=== PATIENT | male | born 1960 | race Caucasian/White ===

== ENCOUNTER 2023-04-05 08:05 | Outpatient (CLI) | payer OTHER, SELFPAY ==
--- NOTE | ~2023-04-05 | XR_ITS ---
Lumbosacral Spine: AP and lateral views Clinical History: Pain Findings: The normal lordotic curve is maintained. 17 mm anterolisthesis of L5 over S1 present. Suspe cted L5 pars interarticularis defects. There is advanced facet arthropathy at L4-L5 and L5-S1. The sa croiliac joints are normally outlined. Impression: 17 mm anterolisthesis of L5 over S1, suspected bilateral L5 pars interarticularis defects. Facet arthropathy at the lower lumbar spine. Reviewed, dictated and finalized at location M. OWNER OPERATOR TRUCK DRIVER Impression: 17 mm anterolisthesis of L5 over S1, suspected bilateral L5 pars interarticular is defects. Facet arthropathy at the lower lumbar spine.
--- NOTE | ~2023-04-05 | XR_ITS ---
AP and lateral views of the right hip Clinical history: Pain Findings: No acute fracture or dislocation is seen. Osseous alignment is anatomic. There is mild to m oderate degenerative change of the right hip joint. Soft tissues are unremarkable. Impression: Aojv-hn-xohebjxx degenerative change of the right hip joint. No fracture or dislocation. Reviewed, dictated and finalized at location . LITIES MAINTENANCE ENGINEER Impression: Ebgt-vj-[id number] degenerative change of the right hip joint. No fracture or dislocation.
[2023-04-05 19:52] LABS: Alanine Aminotransferase 29 U/L (6-50); Albumin Level 4.3 g/dL (3.5-5.1); Alkaline Phosphatase 63 U/L (38-126); Anion Gap 6 mmol/L (8-16); Aspartate Amino Transferase 64 U/L (17-59); Blood Urea Nitrogen 10 mg/dL (9-20); Calcium 9.3 mg/dL (8.4-10.2); Carbon Dioxide 29 mmol/L (22-30); Chloride 103 mmol/L (98-107); Cholesterol 204 mg/dL (0-200); Estimated Glomerular Filt Rate > 60; Glucose 100 mg/dL (65-110); HDL Direct 64 mg/dL; Potassium 4.4 mmol/L (3.4-5.0); Sodium 138 mmol/L (137-145); Triglycerides 95 mg/dL (<150)
[2023-04-05 20:03] LABS: LDL Cholesterol Direct 111 mg/dL
[2023-04-05 20:20] LABS: Prostate Specific Antigen 0.5 ng/mL (< OR = 4.0)
[2023-04-05 20:33] LABS: Vitamin D 25 Hydroxy 41.8 ng/mL
[2023-04-05 20:42] LABS: Basophils Percent Auto 0.6 % (0.2-1.2); Eosinophils Absolute Auto 0.3 K/mm3 (0-0.3); Eosinophils Percent Auto 4.7 % (0-4.4); Hematocrit 48.4 % (42.0-52.0); Hemoglobin 15.2 g/dL (14.0-18.0); Immature Granulocyte Absolute 0.02 K/mm3 (0.00-0.031); Immature Granulocyte Percent A 0.3 % (0-0.5); Lymphocytes Absolute Auto 2.27 K/mm3 (0.9-3.2); Lymphocytes Percent Auto 35.9 % (18.3-44.2); Mean Corpuscular HGB Conc 31.4 g/dl (32-36); Mean Corpuscular Volume 101.9 fl (80-100); Mean Platelet Volume 10.6 fl (7.4-10.4); Monocytes Absolute Auto 0.7 K/mm3 (0.1-0.6); Monocytes Percent Auto 11.7 % (2.6-8.5); Neutrophils Percent Auto 46.8 % (45.5-73.1); Platelet Count Result 196 k/mm3 (150-375); Red Blood Count 4.75 M/mm3 (4.6-6.20); Red Cell Distribution Width 13.4 % (11.5-14.5); White Blood Count 6.3 K/mm3 (4.5-10.0)
[2023-04-08 13:33] LABS: Testosterone Free 109.8 pg/mL (35.0-155.0); Testosterone Total 1132 ng/dL (250-1100)
== END 2023-04-05 08:06 | disposition home or self-care (01) ==
PROVIDERS: PCP Family Medicine; Visit Provider Family Medicine
DX: Z00.00 Encounter for general adult medical examination without abnormal findings (principal); M16.11 Unilateral primary osteoarthritis, right hip; M47.817 Spondylosis without myelopathy or radiculopathy, lumbosacral region; M54.30 Sciatica, unspecified side; R53.83 Other fatigue
CPT/HCPCS: 36415; 72100; 73502; 80053; 80061; 82306; 84153; 84402; 84403; 85025; G0103

== ENCOUNTER 2023-04-29 09:07 | Outpatient (CLI) | payer OTHER, SELFPAY ==
[2023-05-03 11:15] LABS: DHEA-Sulfate 54 mcg/dL (24-244)
[2023-05-04 18:04] LABS: Testosterone Free 84.1 pg/mL (35.0-155.0); Testosterone Total 1025 ng/dL (250-1100)
[2023-05-04 21:10] LABS: FSH 11.6 mIU/mL (1.4-12.8); LH 7.1 mIU/mL (1.6-15.2)
[2023-05-05 21:28] LABS: Estradiol, Ultrasensitive 34 pg/mL (< OR = 29)
== END 2023-04-29 09:08 | disposition home or self-care (01) ==
LOC: ANHBWCLAB 09:10
PROVIDERS: PCP Family Medicine; Visit Provider Family Medicine
DX: R79.89 Other specified abnormal findings of blood chemistry (principal)
CPT/HCPCS: 36415; 82627; 82670; 83001; 83002; 84402; 84403; 84443

== ENCOUNTER 2023-07-04 09:51 | Outpatient (CLI) | payer OTHER, SELFPAY ==
[2023-07-04 18:50] LABS: Alanine Aminotransferase 26 U/L (6-50); Albumin Level 4.3 g/dL (3.5-5.1); Alkaline Phosphatase 57 U/L (38-126); Aspartate Amino Transferase 65 U/L (17-59); Bilirubin,Total 0.7 mg/dL (0.2-1.3)
[2023-07-04 18:59] LABS: Hepatitis B Surface Antigen Negative (Negative)
[2023-07-04 19:05] LABS: HAV RESULT Negative (Negative); Hepatitis B Core IgM Result Negative (Negative)
[2023-07-04 19:16] LABS: Hepatitis C Virus Antibody Negative (Negative)
== END 2023-07-04 09:52 | disposition home or self-care (01) ==
LOC: ANHBWCLAB 09:54
PROVIDERS: PCP Family Medicine; Visit Provider Family Medicine
DX: R74.01 Elevation of levels of liver transaminase levels (principal)
CPT/HCPCS: 36415; 80074; 80076

== ENCOUNTER 2023-07-25 08:01 | Outpatient (CLI) | payer OTHER, SELFPAY ==
--- NOTE | ~2023-07-25 | US_ITS ---
Limited Abdominal Sonogram: Real-time sonographic imaging of the right upper quadrant was performed. Clinical History: Abnormal serum enzyme levels Findings: The liver appears echogenic, with no evidence of mass lesion or bile duct dilatation. Main portal vein demonstrates normal direction of flow. The gallbladder is well distended, and appears no rmal with no evidence of gallstone or wall thickening. The common bile duct measures 6 mm. The visua lized pancreas, aorta, and IVC are unremarkable. Impression: Diffuse fatty infiltration of liver. Reviewed, dictated and finalized at location M. MACEUTICAL PLANT OPERATOR Impression: Diffuse fatty infiltration of liver.
== END 2023-07-25 08:02 | disposition home or self-care (01) ==
PROVIDERS: PCP Family Medicine; Visit Provider Family Medicine
DX: R74.8 Abnormal levels of other serum enzymes (principal); R74.01 Elevation of levels of liver transaminase levels; K76.0 Fatty (change of) liver, not elsewhere classified
CPT/HCPCS: 76705

== ENCOUNTER 2024-01-11 06:59 | Outpatient (CLI) | payer OTHER, SELFPAY ==
[2024-01-11 19:00] LABS: Hematocrit 45.9 % (42.0-52.0); Hemoglobin 14.5 g/dL (14.0-18.0); Mean Corpuscular HGB Conc 31.6 g/dl (32-36); Mean Corpuscular Hemoglobin 31.5 pg (26-34); Mean Corpuscular Volume 99.8 fl (80-100); Mean Platelet Volume 11.1 fl (7.4-10.4); Platelet Count Result 188 k/mm3 (150-375); Red Cell Distribution Width 13.5 % (11.5-14.5); White Blood Count 5.3 K/mm3 (4.5-10.0)
[2024-01-11 20:34] LABS: Alanine Aminotransferase 22 U/L (6-50); Albumin Level 4.1 g/dL (3.5-5.1); Alkaline Phosphatase 52 U/L (38-126); Anion Gap 8 mmol/L (4-12); Aspartate Amino Transferase 56 U/L (17-59); Bilirubin,Total 0.7 mg/dL (0.2-1.3); Blood Urea Nitrogen 8 mg/dL (9-20); Calcium 9.2 mg/dL (8.4-10.2); Carbon Dioxide 28 mmol/L (22-30); Chloride 102 mmol/L (98-107); Estimated Glomerular Filt Rate > 60; Glucose 97 mg/dL (65-110); Potassium 4.2 mmol/L (3.4-5.0); Sodium 138 mmol/L (137-145)
[2024-01-11 23:10] LABS: Prostate Specific Antigen 0.6 ng/mL (< OR = 4.0)
== END 2024-01-11 07:00 | disposition home or self-care (01) ==
PROVIDERS: PCP Family Medicine; Visit Provider Family Medicine
DX: R74.8 Abnormal levels of other serum enzymes (principal); R74.01 Elevation of levels of liver transaminase levels; R79.89 Other specified abnormal findings of blood chemistry; R53.83 Other fatigue; M54.30 Sciatica, unspecified side
CPT/HCPCS: 36415; 80053; 84153; 85027; G0103

== ENCOUNTER 2024-09-18 07:10 | Outpatient (CLI) | payer OTHER, SELFPAY ==
--- NOTE | ~2024-09-18 | XR_ITS ---
Right Shoulder Technique: AP and scapular Y views were obtained. Clinical History: Pain Findings: No fracture or dislocation is seen. Osseous alignment is anatomic. The glenohumeral and acr omioclavicular joint spaces are preserved. Soft tissues are unremarkable. Impression: Unremarkable right shoulder radiographs. Reviewed, dictated and finalized at [facility]. Impression: Unremarkable right shoulder radiographs.
--- OUTSIDE RECORDS SUMMARY | 2024-09-18 07:14 | XMS_ITS | Encounter Summary ---
Author Organization [facility] Address [address] [place] [address] Care Team Providers Care Nursing Information Systems Coordinator Name Role Phone Unavailable Primary Care Provider Unavailabl e Encounter Details Date Type Department Care Team (Late st Contact Info) Description 09/24/2020 Lab Requisition [facility] DermPath Lab [address] [place] [address] Gabriele Johnson MD [address] [place], [place] [id number] Social History Tobacco Use Types Packs/Day Years Used Date Smoking Tobacco: Never Assessed Sex and Gender Information Value Date Recorded Sex Assigned at Not on file Legal Sex Male 6:41 PM LMSW Gender Identity Not on file Sexual Orientation Not on file documented as of this encounter Plan of Treatment Not on file documented as of this encounter Procedures Procedure Name Priority Date/Time Associated Diagnosis Comments DERMATOPATHOLOGY Routine 09/23/2020 12:0 0 AM CDT documented in this encounter Results * DERMATOPATHOLOGY (09/23/2020 12:00 AM CDT) Case Report Dermatopathology Report Case: [id number] Authorizing Provider: Gabriele Johnson MD Collected: 09/23/2020 12:00 AM Ordering Location: [facility]erm[facility] Received: 09/24/2020 12:35 PM Pathologist: Yu Farnsworth MD Specimen: Skin, left upper lip under nostril 4:04 PM CDT DERMATOPATHOLOGY LABORATORY Final Diagnosis Specimen A. 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 The specimen consists of a shave biopsy with ED to base measuring 6x3x3 mm. Jar 0. 1 4:04 PM T DERMATOPATHOLOGY LABORATORY Microscopic Description Specimen A. SKIN, left upper lip under nostril: Sections show a lobular tumor composed of aggregates of epithelial cells extending from the epidermis into the dermis. The aggregates are composed of squamoid cells showing variable glycogen vacuolation (pale-staining cytoplasm). CD34 immunostain shows patchy positivity in lesional cells. BerEp4 shows focal weak staining. This lesion is present at the margin of the specimen. 1 4:04 PM T DERMATOPATHOLOGY LABORATORY Disclaimer An external and internal positive and negative controls are appropriate for the histochemical, immunohistochemical and immunofluorescence stain(s) in this case (if any), except where stated explicitly. The performance characteristics of the stain(s) cited in this report were developed and its performance characteristic determined by the Dermatopathology Laboratory at [facility], directed by Dr. Derick Espinoza. These tests need not be, and therefore are not, approved by the [place] Food and Drug Administration. The tests are used for clinical purposes. Billing Codes Specimen Charges Stain Charges 81773 1 [id number] 02998 1 1 1 4:04 PM CDT DERMATOPATHOLOGY LABORATORY Embedded Images 1 4:04 PM T DERMATOPATHOLOGY LABORATORY Pathology/Cytolog y TISSUE SPECIMEN FROM SKIN / Unknown 09/23/2020 09/24/2020 12:35 PM CDT Gabriele Johnson MD LAB - PATHOLOGY/CYTOLOGY ORD ERABLES Final Result DERMATOPATHOLOGY LABORATORY [facility] - Department of Dermatology [address] [phone] documented in this encounter Visit Diagnoses Not on filedocumented in this encounter
--- OUTSIDE RECORDS SUMMARY | 2024-09-18 07:14 | XMS_ITS | Encounter Summary ---
Author Organization [facility] Address [address] [place] [address] Care Team Providers Care Health Program Specialist Name Role Phone Unavailable Primary Care Provider Unavailabl e Encounter Details Date Type Department Care Team (Late st Contact Info) Description 06/07/2023 Lab Requisition [facility] - DermPath Lab [address] [place] [id number] Gabriele Johnson MD [address] [place] [address] Social History Tobacco Use Types Packs/Day Years Used Date Smoking Tobacco: Never Assessed Sex and Gender Information Value Date Recorded Sex Assigned at Not on file 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 Gender Identity Not on file Sexual Orientation Not on file documented as of this encounter Plan of Treatment Not on file documented as of this encounter Procedures Procedure Name Priority Date/Time Associated Diagnosis Comments DERMATOPATHOLOGY Routine 06/06/2023 12:0 0 AM CASHIER PAYMENTS RECEIVED documented in this encounter Results * DERMATOPATHOLOGY (06/06/2023 12:00 AM CASHIER PAYMENTS RECEIVED) Case Report Dermatopathology Report Case: [id number] Authorizing Provider: Gabriele Johnson MD Collected: 06/06/2023 12:00 AM Ordering Location: [facility] DermPath Lab Received: 06/07/2023 12:04 PM Pathologist: Floyd Espinoza MD Specimen: Skin, toenail 2:16 PM CASHIER PAYMENTS RECEIVED DERMATOPATHOLOGY LABORATORY Final Diagnosis Specimen A. SKIN, toenail: ONYCHOMYCOSIS (B35.1) 2:16 PM CASHIER PAYMENTS RECEIVED DERMATOPATHOLOGY LABORATORY Clinical History R/O Fungus for PAS Stain 2:16 PM [facility] DERMATOPATHOLOGY LABORATORY Gross Description Specimen A: Received is one formalin filled container labeled with the patient's name and designated toenail. The specimen consists of a nail clipping measuring 25i41b6 mm. Jar 0+. 2:16 PM [facility] DERMATOPATHOLOGY LABORATORY Microscopic Description Specimen A. SKIN, toenail: Sections show nail plate. Fungal hyphae are present on Periodic acid-Blanca (PAS) stained sections. 2:16 PM [facility] DERMATOPATHOLOGY LABORATORY Disclaimer An external and internal positive and negative controls are appropriate for the histochemical, immunohistochemical and immunofluorescence stain(s) in this case (if any), except where stated explicitly. The performance characteristics of the stain(s) cited in this report were developed and its performance characteristic determined by the Dermatopathology Laboratory at [facility], directed by Dr. Derick Espinoza. These tests need not be, and therefore are not, approved by the [place] Food and Drug Administration. The tests are used for clinical purposes. Billing Codes Specimen Charges Stain Charges 74838 1 84175 1 4 2:16 PM [facility] DERMATOPATHOLOGY LABORATORY Embedded Images 2:16 PM [facility] DERMATOPATHOLOGY LABORATORY Pathology/Cytolog y TISSUE SPECIMEN FROM SKIN / Unknown 06/06/2023 06/07/2023 12:04 PM CASHIER PAYMENTS RECEIVED Gabriele Johnson MD LAB - PATHOLOGY/CYTOLOGY ORD ERABLES Final Result DERMATOPATHOLOGY LABORATORY [facility] - Department of Dermatology [address] [phone] documented in this encounter Visit Diagnoses Not on filedocumented in this encounter
--- OUTSIDE RECORDS SUMMARY | 2024-09-18 07:14 | XMS_ITS | Clinical Summary ---
Author Organization [facility] Address [address] [place] [address] Care Team Providers Care Wood Chopper Name Role Phone Unavailable Primary Care Provider Unavailabl e Source Comments [facility],non-owned Affiliates and Associated Physician Practices is amultiple site organization consisting of ambulatory clinics and hospital sitesin [place], [place], [place] and [place]. This disclosure is being madepursuant to the Care Everywhere program and may not contain all information available regarding this patient. 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 Gender Identity Not on file Sexual Orientation Not on file Plan of Treatment Health Maintenance Due Date Last Done Comments COLOGUARD (AGES 45-75) - COL ON CA SCREENING 1958 COLON MONITORING 1958 COLONOSCOPY - COLON CA SCREENING 1958 CT COLONOGRAPHY - COLON CA SCREENING 1958 Colorectal Cancer Screening 1958 FIT - COLON CA SCREENING 1958 FLEX SIG - COLON CA SCREENING 1958 LIPID TESTING 1958 HIV SCREENING 1973 HEPATITIS C SCREENING 12/01/1976 DTAP/TDAP/TD VACCINES (1 - Tdap) 1977 PNEUMOCOCCAL VACCINE 50+ (1 of 1 - PCV) 2008 ZOSTER VACCINE (1 of 2) 2008 COVID-19 VACCINE ( - 2023-2 5 season) 2024 DEPRESSION SCREENING 05/30/2024 INFLUENZA VACCINE (Season Ended) 2025 Respiratory Syncytial Virus (RSV) Vaccine Pt: or over 60 yrs (1 - 1-dose 75+ series) 2033 HEPATITIS B VACCINE Aged Out No longe r eligible based on patient's age to complete this topic HIB VACCINE Aged Out No longer eligi ble based on patient's age to complete this topic HPV VACCINE Aged Out No longer eligi ble based on patient's age to complete this topic MENINGOCOCCAL (Group B) VACC INE SHARED DECISION-MAKING Aged Out No longer eligibl e based on patient's age to complete this topic MENINGOCOCCAL GROUPS A/C/Y/W VACCINE Aged Out No longer eligible b ased on patient's age to complete this topic Insurance Member Subscriber Plan / Payer (Ef fective for All Dates) Name:Ruddy Gallo Relation to Subscriber:Self Name:RUDDY GALLO Payer ID:[id number] (MAYLIN) Type:FractureO Address: [address] [place] [address] [employer] Member Subscriber Plan / Payer (Ef fective 2023-Present) Name:Ruddy Gallo Relation to Subscriber:Self Name:Ruddy Gallo Payer ID:[id number] (NAIC) Type:FractureO Address: [address] [address] [place] [address]
--- OUTSIDE RECORDS SUMMARY | 2024-09-18 07:14 | XMS_ITS | Clinical Summary ---
Author Organization [facility] Address [address] [place] [address] Care Team Providers Care Patient Manager Name Role Phone Gabriele Johnson MD Unavailable [phone] Kiki Navas MD Unavailable [phone] Rajendra Marmolejo MD Unavailable [phone] Allergies No known active allergies Medications ibuprofen (ADVIL,MOTRIN) 600 mg tabletIndications:Pain Take 1 tablet (600 mg total) by mouth 4 (four) times a day as needed for pain Take with food. 30 tablet Active Additional Information Patient taking differently: 200 mgoral 4 times daily PRN, pain, Take with food., Indications: Pain, Reported on 01/11/2022 multivitamin with minerals tablet Take 1 tablet by mouth daily Active doxycycline hyclate 100 mg capsule TAKE 1 CAPSULE BY MOUTH TWICE A DAY WITH MEALS (DO NOT TAKE AT BEDTIME) Active ketoconazole (NIZORAL) 2 % cream APPLY TO FACE TWICE A DAY Active hydrocortisone 2.5 % cream APPLY EVERY MORNING ONLY TO FACE Active vit G-R-dbpxnn-zinc-lutein 226-90-0.8-5 mg capsule Take by mouth Active aspirin 81 mg enteric coated tablet Take 81 mg by mouth daily Active lovastatin (MEVACOR) 20 mg tabletIndications:Pure hypercholesterolemia Take 1 tablet (20 mg total) by mouth nightly 90 tablet 3 Active tadalafiL (Cialis) 20 mg tabletIndications:Erect ile dysfunction, unspecified erectile dysfunction type Take one prior to sexual activity; effects may last 36 h 27 tablet 3 022 Active clobetasoL (TEMOVATE) 0.05 % ointmentIndications:Oth er atopic dermatitis Apply to affected areas bid for up to 2 weeks, may repeat after a 1-wk drug-free holiday prn rash. 45 g 023 Active Active Problems Problem Noted Date Diagnosed Date Unspecified cataract 06/15/2022 Other atopic dermatitis 06/15/2022 Assessment & Plan (06/15/2022 12:48 PM HOGSHEAD PRESS OPERATOR): Trial of topical steroid, will follow. Erectile dysfunction 07/09/2021 Assessment & Plan (01/11/2022 10:51 AM CDT): Clinically improved, continue current prescription medications. Assessment & Plan (07/09/2021 10:22 AM HOGSHEAD PRESS OPERATOR): Improved with Cialis, cont. Refill given. Blood pressure elevated without history of HTN 0 07/09/2021 Assessment & Plan (01/11/2022 10:51 AM CDT): Re-checked manually, BP within goal of < 140/90. Low sodium diet recommended. Assessment & Plan (07/09/2021 10:22 AM HOGSHEAD PRESS OPERATOR): BP within normal range. Check bps at home. BP goal < 140/90. Pure hypercholesterolemia 07/09/2021 Assessment & Plan (01/11/2022 10:50 AM CDT): LDL near goal of < 100, low chol diet recommended, will follow. Assessment & Plan (07/09/2021 10:21 AM HOGSHEAD PRESS OPERATOR): LDL nearing goal of < 100. Advised patient to quit smoking. Labs ordered. Cont current Rx meds. Rosacea, acne 07/09/2021 Hx of colonic polyps 08/01/2020 Overview (08/01/2020): Added automatically from request for surgery [id number] Lumbar disc disease 06/14/2017 Alcohol induced fatty liver 06/14/2017 Cigarette nicotine dependence without complicati on 10/13/2013 Assessment & Plan (01/11/2022 10:52 AM CDT): Advised patient to quit smoking. PATIENT REFUSED LUNG CANCER SCREENING. Cites no coverage with insurance as the reason. Assessment & Plan (07/09/2021 10:22 AM HOGSHEAD PRESS OPERATOR): Advised patient to quit smoking. Gastroesophageal reflux disease 10/13/2013 Overview (09/03/2016): ESOPHAGEAL REFLUX Obstructive sleep apnea syndrome 03/01/2012 Overview (09/04/2016): OBSTRUCTIVE SLEEP APNEA ILD (interstitial lung disease) Resolved Problems Problem Noted Date Diagnosed Date Resolved Date Eczema of external ear, bilateral 06/15/2022 06/15/2022 Encounter for screening colonoscopy 08/01/2020 07/09/2021 Overview (08/01/2020): Added automatically from request for surgery [id number] Hypersomnia with sleep apnea 03/01/2012 06/14/2017 Overview (09/03/2016): Hypersomnia with sleep apnea Adiposity 03/01/2012 06/14/2017 Overview (09/03/2016): OBESITY NOS Immunizations Immunization Administration Dates Next Due Hep A, Adult 05/30/2003 Hep B Vaccine 05/30/2003 Influenza, Quadrivalent, Spl it, Intramuscular 03/12/2019,03/12/2019,03/24/2018,05/21 Influenza, Quadrivalent, Spl it, Preservative Free, Intramuscular 04/11/2022,02/28/2020,05/07/2017 Influenza, Split 03/29/2013,03/23/2011 Influenza, Trivalent, Cell Culture-based MDCK, Preservative Free, Antibiotic Free, Intramuscular 04/09/2015 Influenza, Trivalent, IM (MDV) 03/29/2013,2008 Influenza, Trivalent, Recomb inant, Egg Free, Preservative Free, Antibiotic Free, IM (FLUBLOK) 04/03/2014,04/03/2014 Influenza, Unspecified 02/27/2021,05/07/2017 Pfizer SARS-CoV-2 Monovalent Vaccination (12+ Yrs) PURPLE 03/31/2021,08/15/2020,07/24/2020 Tdap 04/15/2019,03/28/2012,01/28/2002 ZOSTER LIVE 04/09/2015 ZOSTER Recombinant 06/06/2018,03/24/2018 Surgical History Surgery Date Site/Laterality Comments TONSILLECTOMY Tonsillectomy VASECTOMY 05/30/2007 - 05/29/2008 Vasectomy OTHER SURGICAL HISTORY sleep apnea: tonsilectomy KNEE ARTHROPLASTY 05/30/2011 - 05/29/2012 Knee replacement COLONOSCOPY 11/27/2010 - 12/27/2010 Medical History Medical History Date Comments Hx Other Medical -Gastro Sleep apnea sleep apnea Hx Other Medical sleep apnea wit h appliance Hx Other Medical Back Pain; Comm ents: [facility] 10/08/2014 - Hx Other Medical Eye Cancer 2014 ; Comments: [facility] 10/08/2014 - Hx Other Medical rt Knee 2011; C omments: [facility] 10/08/2014 - Hx Other Medical broken wrist [age]; Comments: [facility] 10/08/2014 - Family History Medical History Relation Name Comments Hypertension Mother Hypertension; Hypertension Other 1 Family history of Hypertension; Cancer Other 2 Family history of Cancer, unknown; Heart disease Other 3 Family history of Heart problems; Diabetes Neg Hx Diabetes mellit us; Relation Name Status Comments Mother Other 1 Other 2 Other 3 Social History Tobacco Use Types Packs/Day Years Used Date Smoking Tobacco: Every Day Cigarettes 1 36.3 Started: 05/30/1988 Smokeless Tobacco: Never Tobacco Cessation:Ready to Q uit: Not Asked; Counseling Given: Not Answered Comments:Smoking History Packs/day: 1 Packs Alcohol Use Standard Drinks/Week Comments Yes 0 (1 standard drink = 0.6 oz pur e alcohol) AUDIT-C Answer Date Recorded Q1: How often do you have a drink containing alcohol? 4 or more times a week 09/04/2020 Q2: How many drinks containi ng alcohol do you have on a typical day when you are drinking? 1 or 2 Frequency of Binge Drinking Not on file 12/2020 PHQ-2 Answer Date Recorded PHQ-2 Total Score (If total score is 3 or more points, staff should administer the PHQ-9) 0 06/15/2022 Sex and Gender Information Value Date Recorded Sex Assigned at Not on file Legal Sex Male 9:39 AM HOGSHEAD PRESS OPERATOR Gender Identity Not on file Sexual Orientation Not on file Obstetrics History Last Filed Vital Signs Vital Sign Reading Time Taken Comments Blood Pressure 138/88 06/15/2022 8:19 AM HOGSHEAD PRESS OPERATOR Pulse 64 06/15/2022 8:19 AM HOGSHEAD PRESS OPERATOR Temperature 36.3 C (97.4 F) 06/15/2022 8:19 AM HOGSHEAD PRESS OPERATOR Respiratory Rate 18 06/15/2022 8:19 AM HOGSHEAD PRESS OPERATOR Oxygen Saturation 97% 06/15/2022 8:19 AM HOGSHEAD PRESS OPERATOR Inhaled Oxygen Concentration - - Weight 87.3 kg (192 lb 8 oz) 06/15/2022 8:19 AM HOGSHEAD PRESS OPERATOR Height 187.8 cm (6' 1.94 ) 06/15/2022 8:19 AM CS T Body Mass Index 24.76 06/15/2022 8:19 AM HOGSHEAD PRESS OPERATOR Plan of Treatment Health Maintenance Due Date Last Done Comments Pneumococcal vaccine 65+ (1 of 2 - PCV) 1977 Lung Cancer Screening 08/08/2018 08/08/2017 , 07/30/2016, 07/30/2016, Additional history exists Prostate Cancer Screening-PSA 07/01/2021, 06/20/2019, 06/12/2018, Additional history exists Depression Screening 06/15/2023 06/15/2022, 01/11/2022, 07/09/2021, Additional history exists Fall Risk Assessment 06/15/2023 06/15/2022, 09/05/2020, 07/29/2020, Additional history exists Abdominal Aortic Aneurysm (A AA) Screen 12/07/2023 Well Visit 65+ 12/07/2023 01/11/2022, 0306/2020, 06/29/2019, Additional history exists Covid-19 Vaccine (2023-2 5 season) 2024 03/31/2021, 08/15/2020, 07/24/2020 Influenza Vaccine (Season Ended) 2025 04/11/2022, 02/27/2021, 02/28/2020, Additional history exists Colon Cancer Screening-Colonoscopy 09/05/2025 09/05/2020, 12/15/2010, 12/15/2010 DTaP/Tdap/Td Vaccine (4 - Td or Tdap) 04/15/2029 04/15/2019, 03/28/2012, 01/28/2002 Hepatitis B Screening Completed 05/30/2003 Hepatitis C Screening Completed 06/04/2016, 017 Zoster Vaccine Completed 06/06/2018, 02/28, 04/09/2015 Colon Cancer Screening-CT Colonography Discontinued 09/05/2020, 12/15/2010, 12/15/2010 Colon Cancer Screening-DNA Stool Discontinued 09/05/2020, 12/15/2010, 12/15/2010 Colon Cancer Screening-FIT Discontinued 09/05, 12/15/2010, 12/15/2010 Colon Cancer Screening-Sigmoidoscopy Discontinued 09/05/2020, 12/15/2010, 12/15/2010 Procedures Procedure Name Priority Date/Time Associated Diagnosis Comments COLONOSCOPY 09/05/2020 9:08 AM CDT PSA SCREEN Routine 07/01/2020 7:08 [address] PRESS [address] CT LUNG CANCER SCREENING Schedule Routine, Read Routine (OP Routine) 08/08/2017 6:50 AM CDT Encounter for screening for respiratory disorder Cigarette smoker SERUM HEPATITIS C AB Routine 06/04/2016 4:40 AM HOGSHEAD PRESS OPERATOR from Last 3 Months or Most Recently Relevant to Health Maintenance Results * COLONOSCOPY (09/05/2020 9:08 AM CDT) Anatomical Region Laterality Modality Other Narrative Procedure Note Dru Martinez MD - 09/05/2020 9:08 AM CDT [facility] Patient Name: Larry Gallo Procedure Date: 09/05/2020 9:08 AM Date of : 1960 Admit Type: Outpatient Age: 59 Gender: Male Attending MD: Dru Martinez M.D. Room: [facility] 2 Note Status: Finalized Patient Profile: Refer to note in patient chart for documentation of history and physical. Procedure: Colonoscopy Indications: Screening for colorectal malignant neoplasm, Last colonoscopy: November 2010 Referring MD: Manuel Ortiz M.D. Providers: Dru Martinez M.D. Impression: - Hemorrhoids found on perianal exam. - Diverticulosis in the sigmoid colon. - The examination was otherwise normal. - No specimens collected. Recommendation: - Discharge patient to home. - Resume previous diet. - Continue present medications. - Repeat colonoscopy in 10 years for screening purposes. - Return to primary care physician as previously scheduled. Medicines: Propofol per Anesthesia Complications: No immediate complications. Estimated Blood Loss: Estimated blood loss: none. Procedure: Pre-Anesthesia Assessment: - This assessment was completed [Time ofAssessment] prior to the administration of sedation. The benefits, risks and alternatives of theprocedure and sedation were discussed and informed consentwas obtained. All questions were answered. Please referto the signed informed consent document in the medical record. Bowel prep was administered using a single dose. The bowel preparation used was Miralax via single dose instruction. The bowel preparation used was bisacodyl tablets via single dose instruction.The scope was passed under direct vision. TheColonoscope [id number] was introduced through the anus and advanced to the the cecum, identified by appendiceal orifice and ileocecal valve. The colonoscopy was performed without difficulty. The patient tolerated the procedure well. The qualityof the bowel preparation was excellent. Findings: Hemorrhoids were found on perianal exam. Multiple small and large-mouthed diverticula were found in thesigmoid colon. The exam was otherwise without abnormality. Electronically signed by Dru Martinez M.D. Dru Martinez M.D. 09/05/2020 10:13:42 AM Number of Addenda: 0 Note Initiated On: 09/05/2020 9:08 AM Procedure Code(s): --- Professional --- G0121, Colorectal cancer screening; colonoscopy on individual not meeting criteria for high risk Diagnosis Code(s): --- Professional --- K57.30, Diverticulosis of large intestine without perforation orabscess without bleeding K64.9, Unspecified hemorrhoids Z12.11, Encounter for screening for malignant neoplasm of colon CPT copyright 2019 [employer]. All rights reserved. The codes documented in this report are preliminary and upon telegraph and teletype operator reviewmay be revised to meet current compliance requirements. Recognized by the [place] [employer] for promoting quality in endoscopy Dru Martinez MD ENDOSCOPY PROCEDURES Final Re sult * PSA screen (07/01/2020 7:08 AM HOGSHEAD PRESS OPERATOR) PSA 0.5 < OR = 4.0 ng/mL [facility] Comment: The total PSA value from this assay system is standardized against the WHO standard. The test result will be approximately 20% lower when compared to the equimolar-standardized total PSA (Salvador David). Comparison of serial PSA results should be interpreted with this fact in mind. This test was performed using the Siemens chemiluminescent method. Values obtained from different assay methods cannot be used interchangeably. PSA levels, regardless of value, should not be interpreted as absolute evidence of the presence or absence of disease. 07/01/2020 7:08 AM HOGSHEAD PRESS OPERATOR 07/01/2020 7:12 AM HOGSHEAD PRESS OPERATOR Narrative [facility] - 07/02/2020 3:08 AM HOGSHEAD PRESS OPERATOR FASTING:YES FASTING: YES us Manuel Ortiz MD LAB BLOOD ORDERABLES Final Res ult CATHERINE [facility] [address] [place] [address] * CT Lung Cancer Screening (08/08/2017 6:50 AM CDT) Anatomical Region Laterality Modality Body N/A Computed Tomogra phy Impressions 08/08/2017 9:08 AM CDT Lung rad 3 07/02/2016, follow-up CT chest is suggested in one year Electronically signed by: Elijah Nayak M.D. Narrative 08/08/2017 9:08 AM CDT RESULT: HISTORY: Lung nodules., Follow-up EXAMINATION: CT LUNG CANCER SCREENING ORDER DATE: 08/08/2017 7:00 AM COMPARISON: 08/16/2016 TECHNIQUE: Transaxial computed tomographic images of the chest were obtained without intravenous contrast using a low-dose protocol. Multiplanar coronal and sagittal images were reformatted. FINDINGS: Multiple stable noncalcified lung nodules are noted Nodule 1: right middle lobe, 6 mm nodule unchanged, best seen on axial image 70 Nodule 2: A pleural-based 6 mm nodule adjacent to the right pulmonary fissure in the right lower lobe on image 89, unchanged Nodule 3: A 6 mm pleural-based right lower lobe nodule posteromedially on image 67 unchanged. No lung infiltrate. No pericardial or pleural effusion. No mediastinal, hilar or axillary lymphadenopathy Heart is not enlarged. Small hiatal hernia. There are fatty change of liver. Spleen, pancreas, adrenals appear unremarkable Procedure Note Elijah Nayak MD - 08/08/2017 RESULT: HISTORY: Lung nodules., Follow-up EXAMINATION: CT LUNG CANCER SCREENING ORDER DATE: 08/08/2017 7:00 AM COMPARISON: 08/16/2016 TECHNIQUE: Transaxial computed tomographic images of the chest were obtained without intravenous contrast using a low-dose protocol. Multiplanar coronal and sagittal images were reformatted. FINDINGS: Multiple stable noncalcified lung nodules are noted Nodule 1: right middle lobe, 6 mm nodule unchanged, best seen on axial image 70 Nodule 2: A pleural-based 6 mm nodule adjacent to the right pulmonary fissure in the right lower lobe on image 89, unchanged Nodule 3: A 6 mm pleural-based right lower lobe nodule posteromedially on image 67 unchanged. No lung infiltrate. No pericardial or pleural effusion. No mediastinal, hilar or axillary lymphadenopathy Heart is not enlarged. Small hiatal hernia. There are fatty change of liver. Spleen, pancreas, adrenals appear unremarkable IMPRESSION: Lung rad 3 07/02/2016, follow-up CT chest is suggested in one year Electronically signed by: Elijah Nayak M.D. Manuel Ortiz MD IMG CT PROCEDURES Final Result * Serum Hepatitis C ab (06/04/2016 4:40 AM HOGSHEAD PRESS OPERATOR) HCV ab NON-REACTI VE NON-REACTI VE CDR HISTORICAL RESULTS Hepatitis signal to cutoff ratio 0.06 <1.00 CDR HISTORICAL RESULTS Serum 06/04/2016 4:40 AM HOGSHEAD PRESS OPERATOR Narrative CDR HISTORICAL RESULTS - 06/05/2016 6:00 AM HOGSHEAD PRESS OPERATOR Test performed at [facility] [address] [address] Director: RAMIRO PICKETT DO,MPH Historical Provider LAB BLOOD ORDERABLES Maria Alejandra l Result CDR HISTORICAL RESULTS from Last 3 Months or Most Recently Relevant to Health Maintenance Insurance [facility] CHOICE PLUS [facility] PPO AET [facility] CHOICE PLUS Advance Directives For more information, please contact: [phone] * Full Code (Latest Code Status on File) Date Activated Date Inactivated Comments 09/05/2020 9:10 AM 09/05/2020 3:20 PM * Full Code Date Activated Date Inactivated Comments 09/05/2020 9:10 AM 09/05/2020 9:10 AM Care Teams Patient Manager Relationship Specialty Start Date End Date Gabriele Johnson MD [address] [place] [address] Referring Physician Dermatology 07/09/21 Kiki Navas MD [address] [address] Referring Physician Pulmonary Disease 07/09/21 Rajendra Marmolejo MD [address] [address] Referring Physician Emergency Medicine 06/15/22
--- OUTSIDE RECORDS SUMMARY | 2024-09-18 07:14 | XMS_ITS | Referral Summary ---
Author Organization [facility] Address [address] [place] [address] Care Team Providers Care Plant Reliability Engineer Name Role Phone Gabriele Johnson MD Unavailable [phone] Kiki Navas MD Unavailable [phone] Rajendra Marmolejo MD Unavailable [phone] Allergies No known active allergies Medications ibuprofen [...] EVERY MORNING ONLY TO FACE Active vit Y-X-tvmkhz-zinc-lutein 226-90-0.8-5 mg capsule Take by mouth Active [...] 06/15/2022 Assessment & Plan (06/15/2022 12:48 PM COUNTERINTELLIGENCE SPECIALIST): Trial of topical steroid, will follow. Erectile dysfunction 07/09/2021 Assessment & Plan (01/11/2022 10:51 AM CDT): Clinically improved, continue current prescription medications. Assessment & Plan (07/09/2021 10:22 AM COUNTERINTELLIGENCE SPECIALIST): Improved with Cialis, cont. Refill given. Blood pressure elevated without history of HTN 0 07/09/2021 Assessment & Plan (01/11/2022 10:51 AM CDT): Re-checked manually, BP within goal of < 140/90. Low sodium diet recommended. Assessment & Plan (07/09/2021 10:22 AM COUNTERINTELLIGENCE SPECIALIST): BP within normal range. Check bps at home. BP goal < 140/90. Pure hypercholesterolemia 07/09/2021 Assessment & Plan (01/11/2022 10:50 AM CDT): LDL near goal of < 100, low chol diet recommended, will follow. Assessment & Plan (07/09/2021 10:21 AM COUNTERINTELLIGENCE SPECIALIST): LDL nearing goal of < 100. Advised patient to quit smoking. Labs ordered. Cont current Rx meds. Rosacea, acne 07/09/2021 Hx of colonic polyps 08/01/2020 Overview (08/01/2020): Added automatically from request for surgery [id number] Lumbar disc disease 06/14/2017 Alcohol induced fatty liver 06/14/2017 Cigarette nicotine dependence without complicati on 10/13/2013 Assessment & Plan (01/11/2022 10:52 AM CDT): Advised patient to quit smoking. PATIENT REFUSED LUNG CANCER SCREENING. Cites no coverage with insurance as the reason. Assessment & Plan (07/09/2021 10:22 AM COUNTERINTELLIGENCE SPECIALIST): Advised patient to quit smoking. Gastroesophageal reflux disease 10/13/2013 Overview (09/03/2016): ESOPHAGEAL REFLUX Obstructive sleep apnea syndrome 03/01/2012 Overview (09/04/2016): OBSTRUCTIVE SLEEP APNEA ILD (interstitial lung disease) Resolved Problems Problem Noted Date Diagnosed Date Resolved Date Eczema of external ear, bilateral 06/15/2022 06/15/2022 Encounter for screening colonoscopy 08/01/2020 07/09/2021 Overview (08/01/2020): Added automatically from request for surgery [id number] Hypersomnia with sleep apnea 03/01/2012 06/14/2017 Overview [...] 04/15/2019,03/28/2012,01/28/2002 ZOSTER LIVE 04/09/2015 ZOSTER Recombinant 06/06/2018,03/24/2018 Social History Tobacco Use Types Packs/Day Years [...] on file Legal Sex Male 9:39 AM COUNTERINTELLIGENCE SPECIALIST Gender Identity Not on file Sexual Orientation Not on file Last Filed Vital Signs Vital Sign Reading Time Taken Comments Blood Pressure 138/88 06/15/2022 8:19 AM COUNTERINTELLIGENCE SPECIALIST Pulse 64 06/15/2022 8:19 AM COUNTERINTELLIGENCE SPECIALIST Temperature 36.3 C (97.4 F) 06/15/2022 8:19 AM COUNTERINTELLIGENCE SPECIALIST Respiratory Rate 18 06/15/2022 8:19 AM COUNTERINTELLIGENCE SPECIALIST Oxygen Saturation 97% 06/15/2022 8:19 AM COUNTERINTELLIGENCE SPECIALIST Inhaled Oxygen Concentration - - Weight 87.3 kg (192 lb 8 oz) 06/15/2022 8:19 AM COUNTERINTELLIGENCE SPECIALIST Height 187.8 cm (6' 1.94 ) 06/15/2022 8:19 AM CS T Body Mass Index 24.76 06/15/2022 8:19 AM COUNTERINTELLIGENCE SPECIALIST Plan of Treatment Not on file Procedures Procedure Name Priority Date/Time Associated Diagnosis Comments COLONOSCOPY 09/05/2020 9:08 AM CDT PSA SCREEN Routine 07/01/2020 7:[address] LUNG CANCER SCREENING Schedule Routine, Read Routine (OP Routine) 08/08/2017 6:50 AM CDT Encounter for screening for respiratory disorder Cigarette smoker SERUM HEPATITIS C AB Routine 06/04/2016 4:40 AM COUNTERINTELLIGENCE SPECIALIST from Last 3 Months or Most Recently Relevant to Health Maintenance Results * COLONOSCOPY (09/05/2020 9:08 AM CDT) Anatomical Region Laterality Modality Other Narrative Procedure Note Dru Martinez MD - 09/05/2020 9:08 AM CDT [facility] Patient Name: Larry Gallo Procedure Date: 09/05/2020 9:08 AM Date of : 1960 Admit Type: Outpatient Age: 59 Gender: Male Attending MD: Dru Martinez M.D. Room: [facility] ENDOSCOPY ROOM 2 Note Status: Finalized Patient [...] scope was passed under direct vision. TheColonoscope [id number] was introduced through the anus and advanced [...] malignant neoplasm of colon CPT copyright 2019 [employer]. All rights reserved. The codes documented in this report are preliminary and upon almond roaster reviewmay be revised to meet current compliance requirements. Recognized by the [employer] for promoting quality in endoscopy Dru Martinez MD ENDOSCOPY PROCEDURES Final Re sult * PSA screen (07/01/2020 7:08 AM COUNTERINTELLIGENCE SPECIALIST) PSA 0.5 < OR = 4.0 ng/mL [facility] Comment: The total PSA value from [...] or absence of disease. 07/01/2020 7:08 AM COUNTERINTELLIGENCE SPECIALIST 07/01/2020 7:12 AM COUNTERINTELLIGENCE SPECIALIST Narrative [facility] - 07/02/2020 3:08 AM COUNTERINTELLIGENCE SPECIALIST FASTING:YES FASTING: YES us Manuel Ortiz MD LAB BLOOD ORDERABLES Final Res ult [facility] [address] [place] [address] * CT Lung Cancer Screening (08/08/2017 6:50 AM CDT) Anatomical Region Laterality Modality Body N/A Computed Tomogra phy Impressions 08/08/2017 9:08 AM CDT Lung rad 3 07/02/2016, follow-up CT chest is suggested in one year Electronically signed by: Lina Thomas 08/08/2017 9:08 AM CDT RESULT: HISTORY: Lung [...] by: Elijah Nayak M.D. Manuel Ortiz MD IM CT PROCEDURES Final Result * Serum Hepatitis C ab (06/04/2016 4:40 AM COUNTERINTELLIGENCE SPECIALIST) HCV ab NON-REACTI VE NON-REACTI VE CDR HISTORICAL RESULTS Hepatitis signal to cutoff ratio 0.06 <1.00 CDR HISTORICAL RESULTS Serum 06/04/2016 4:40 AM COUNTERINTELLIGENCE SPECIALIST Narrative CDR HISTORICAL RESULTS - 06/05/2016 6:00 AM COUNTERINTELLIGENCE SPECIALIST Test performed at [facility] [place] [address] [place] [place] [address] Director: RAMIRO PICKETT DO,MPH us Historical Provider LAB BLOOD ORDERABLES Maria Alejandra kaur Result CDR HISTORICAL RESULTS from Last 3 Months or Most Recently Relevant to Health Maintenance Insurance [facility] CHOICE PLUS [facility] H[facility]/PPO Address: [place] [address] [facility] P[facility] OF [facility] H[facility]/PPO Address[facility] [id number] [place] [address] AETNA [facility] CHOICE PLUS [facility]/PPO Address: [address] [address] [place] [address] Advance Directives For more information, please contact: [phone] * Full Code (Latest Code Status on File) Date Activated Date Inactivated Comments 09/05/2020 9:10 AM 09/05/2020 3:20 PM * Full Code Date Activated Date Inactivated Comments 09/05/2020 9:10 AM 09/05/2020 9:10 AM Care Teams Plant Reliability Engineer Relationship Specialty Start Date End Date Gabriele Johnson MD [address] [place] [address] Referring Physician Dermatology 07/09/21 Kiki Navas MD [address] [address] Referring Physician Pulmonary Disease 07/09/21 Rajendra Marmolejo MD [address] [address] Referring Physician Emergency Medicine 06/15/22
--- OUTSIDE RECORDS SUMMARY | 2024-09-18 07:15 | XMS_ITS | Clinical Summary ---
Author Organization [facility] Address [address] [place] [address] Phone Care Team Providers Care Corrective And Manual Arts Therapist Name Role Phone Rober Cabral MD Primary Care Provider [phone] Allergies No known active allergies Medications No known medications Social History Tobacco Use Types Packs/Day Years Used Date Smoking Tobacco: Never Assessed Sex and Gender Information Value Date Recorded Sex Assigned at Not on file Legal Sex Male 11:20 PM CDT Gender Identity Not on file Sexual Orientation Not on file Last Filed Vital Signs Vital Sign Reading Time Taken Comments Blood Pressure 137/78 06/03/2023 2:00 PM CHILD NUTRITION DIRECTOR Pulse 78 06/03/2023 2:00 PM CHILD NUTRITION DIRECTOR Temperature 36.1 C (96.9 F) 06/03/2023 9:44 AM CHILD NUTRITION DIRECTOR Respiratory Rate 18 06/03/2023 2:00 PM CHILD NUTRITION DIRECTOR Oxygen Saturation 100% 06/03/2023 2:00 PM CHILD NUTRITION DIRECTOR Inhaled Oxygen Concentration - - Weight 86.5 kg (190 lb 11.2 oz) 06/03/2023 9:44 AM CHILD NUTRITION DIRECTOR Height 188 cm (6' 2 ) 06/03/2023 9:44 AM CHILD NUTRITION DIRECTOR Body Mass Index 24.48 06/03/2023 9:44 AM CHILD NUTRITION DIRECTOR Plan of Treatment Health Maintenance Due Date Last Done Comments Hepatitis C Virus (HCV) Screening 1960 Hepatitis B Immunization (2 of 3 - 19+ 3-dose series) 06/27/2003 05/30/2003 Colonoscopy 12/07/2003 Colorectal Cancer Screening 12/07/2003 Cologuard 2008 Immunochemical Fecal Occult Blood 2008 Pneumococcal Immunization (50+ years) (1 of 1 - PCV) 2008 PSA Discussion 2013 Influenza Immunization (#1) 01/29/202403/30, 02/27/2021, 02/28/2020, Additional history exists SARS-COV-2 Immunization (2023- season) 2024 03/31/2021, 08/15/2020, 07/24/2020 Respiratory Syncytial Virus (RSV) Immunization (Adult) (1 - 1-dose 75+ series) 2033 Zoster Immunization Completed 06/06/2018, 03/24/2018, 04/09/2015 DTaP/Tdap/Td Immunization Discontinued 2018, 03/28/2012, 01/28/2002 TdaP Immunization Completed 04/15/2019, , 01/28/2002 Meningococcal Immunization (ACWY) Aged Out No longer eligible based on patient's age to complete this topic Rotavirus Immunization Aged Out No lo nger eligible based on patient's age to complete this topic Insurance Care Teams Corrective And Manual Arts Therapist Relationship Specialty Start Date End Date Rober Cabral MD [address] [place] [address] PCP - General Family Medicine 06/03/23
[2024-09-18 19:36] LABS: Alanine Aminotransferase 25 U/L (6-50); Albumin Level 4.2 g/dL (3.5-5.1); Alkaline Phosphatase 57 U/L (38-126); Anion Gap 7 mmol/L (4-12); Aspartate Amino Transferase 53 U/L (17-59); Bilirubin,Total 0.8 mg/dL (0.2-1.3); Blood Urea Nitrogen 9 mg/dL (9-20); Calcium 8.7 mg/dL (8.4-10.2); Carbon Dioxide 24 mmol/L (22-30); Chloride 108 mmol/L (98-107); Cholesterol 190 mg/dL (0-200); Estimated Glomerular Filt Rate > 60; Glucose 93 mg/dL (65-110); HDL Direct 58 mg/dL; Potassium 4.6 mmol/L (3.4-5.0); Sodium 139 mmol/L (137-145); Triglycerides 71 mg/dL (<150)
[2024-09-18 19:38] LABS: Basophils Percent Auto 0.5 % (0.2-1.2); Eosinophils Absolute Auto 0.5 K/mm3 (0-0.3); Eosinophils Percent Auto 8.6 % (0-4.4); Hematocrit 45.3 % (42.0-52.0); Hemoglobin 14.3 g/dL (14.0-18.0); Immature Granulocyte Absolute 0.01 K/mm3 (0.00-0.031); Immature Granulocyte Percent A 0.2 % (0-0.5); Lymphocytes Absolute Auto 2.46 K/mm3 (0.9-3.2); Lymphocytes Percent Auto 43.2 % (18.3-44.2); Mean Corpuscular HGB Conc 31.6 g/dl (32-36); Mean Corpuscular Hemoglobin 30.6 pg (26-34); Mean Corpuscular Volume 96.8 fl (80-100); Mean Platelet Volume 10.4 fl (7.4-10.4); Monocytes Absolute Auto 0.8 K/mm3 (0.1-0.6); Monocytes Percent Auto 13.2 % (2.6-8.5); Neutrophils Percent Auto 34.3 % (45.5-73.1); Platelet Count Result 177 k/mm3 (150-375); Red Blood Count 4.68 M/mm3 (4.6-6.20); Red Cell Distribution Width 13.6 % (11.5-14.5); White Blood Count 5.7 K/mm3 (4.5-10.0)
[2024-09-18 19:47] LABS: LDL Cholesterol Direct 98 mg/dL
[2024-09-22 07:33] LABS: Apolipoprotein B 90 mg/dL
== END 2024-09-18 07:11 | disposition home or self-care (01) ==
PROVIDERS: PCP Family Medicine; Visit Provider Family Medicine
DX: R74.01 Elevation of levels of liver transaminase levels (principal); R74.8 Abnormal levels of other serum enzymes; R53.83 Other fatigue; F17.200 Nicotine dependence, unspecified, uncomplicated; Z00.00 Encounter for general adult medical examination without abnormal findings; M25.511 Pain in right shoulder
CPT/HCPCS: 36415; 73030; 80053; 80061; 82172; 85025

== ENCOUNTER 2024-10-10 15:27 | Outpatient (CLI) | payer OTHER, MEDICARE, SELFPAY ==
--- NOTE | ~2024-10-10 | US_ITS ---
EXAMINATION: US carotid duplex BI DATE: 10/10/2024 16:20 INDICATION: Carotid stenosis TECHNIQUE: Grayscale, color Doppler, and pulsed Doppler images of the cervical carotid arteries were obtained. The degree of vessel stenosis is placed in one of the following categories: normal, <50%, 5 0-69%, >=70% but less than near-occlusion, near-occlusion, or total occlusion. Note that percent sten osis relative to normal distal artery lumen diameter is indirectly measured from velocity measurement s as described by Kye, et al. Radiology 2003; 229:340-346. Notes: Normal: Peak systolic velocity <125 centimeters/sec and no plaque <50%. Peak systolic velocity <125 ( EDV <40; ICA/CCA PSV ratio <2.0; used these factors only a tandem lesions or low cardiac output or co ntralateral disease) 50-69 %: PSV 125-230 (EDV 40-100; ratio 2-4) >= 70% but less than near occlusion: PSV greater than 230 (EDV > 100; ratio> 4.0) Near Occlusion: PSV that is variable; markedly narrowed lumen Occlusion: Absent flow on color/spectral Doppler and no lumen on rios scale. COMPARISON: None. FINDINGS: RIGHT: The right common carotid artery (CCA) peak systolic velocity (PSV) is 60 cm/s. The right internal car otid artery (ICA) PSV is 68 cm/s. The right ICA end-diastolic velocity (EDV) is 25 cm/s. The right IC A/CCA PSV ratio is 1.1. The external carotid artery (ECA) PSV is 69 cm/s. There is antegrade flow in the right vertebral artery. LEFT: The left CCA PSV is 70 cm/s. The left ICA PSV is 75 cm/s. The left ICA EDV is 28 cm/s. The left ICA/C CA PSV ratio is 1.1. The ECA PSV is 52 cm/s. There is antegrade flow in the left vertebral artery. IMPRESSION: 1. Less than 50% stenosis in the right internal carotid artery by sonographic criteria. 2. Less than 50% stenosis in the left internal carotid artery by sonographic criteria. Reviewed, dictated and finalized at location A. IMPRESSION: 1. Less than 50% stenosis in the right internal carotid artery by sonographic bree marshall. 2. Less than 50% stenosis in the left internal carotid artery by sonographic sean bowles.
--- NOTE | ~2024-10-10 | CT_ITS ---
CT Scan of the Chest without Contrast: Clinical Indication: Lung cancer screening, nicotine dependence Technique: Contiguous sections were acquired throughout the chest without intravenous contrast. Dose reduction technique was used on this scan by utilizing automated exposure control and iterative recon struction technique. The dose-length product (DLP) was 109.98 mGy-cm. Findings: There is no evidence of any significant mediastinal, hilar or axillary lymphadenopathy. The mediastin al soft tissues appear normal. There is no evidence of pleural or pericardial effusion. 4 mm right lower lobe nodule noted adjacent to the fissure (axial image 75). 3 mm lingular nodule not ed (axial image 91). Images through the upper abdomen reveal 3 mm nonobstructing right renal stone. Impression: Lung RADS 2: Benign appearance. 12 month follow-up screening CT advised. Reviewed, dictated and finalized at [facility]. Impression: Lung RADS 2: Benign appearance. 12 month follow-up screening CT advised.
--- OUTSIDE RECORDS SUMMARY | 2024-10-10 15:30 | XMS_ITS | Clinical Summary ---
Author Organization [facility] Address [address] [place] [address] Phone Care Team Providers Care Piano Builder Name Role Phone Rober Cabral MD Primary Care Provider [phone] Allergies No known active allergies Medications No [...] Comments Blood Pressure 137/78 06/03/2023 2:00 PM CONSULTING MARINE ENGINEER Pulse 78 06/03/2023 2:00 PM CONSULTING MARINE ENGINEER Temperature 36.1 C (96.9 F) 06/03/2023 9:44 AM CONSULTING MARINE ENGINEER Respiratory Rate 18 06/03/2023 2:00 PM CONSULTING MARINE ENGINEER Oxygen Saturation 100% 06/03/2023 2:00 PM CONSULTING MARINE ENGINEER Inhaled Oxygen Concentration - - Weight 86.5 kg (190 lb 11.2 oz) 06/03/2023 9:44 AM CONSULTING MARINE ENGINEER Height 188 cm (6' 2 ) 06/03/2023 9:44 AM CONSULTING MARINE ENGINEER Body Mass Index 24.48 06/03/2023 9:44 AM CONSULTING MARINE ENGINEER Plan of Treatment Health Maintenance Due Date [...] to complete this topic Insurance Care Teams Piano Builder Relationship Specialty Start Date End Date Rober Cabral MD [address] [place] [address] PCP - General Family Medicine 06/03/23
--- OUTSIDE RECORDS SUMMARY | 2024-10-10 15:30 | XMS_ITS | Referral Summary ---
Author Organization [facility] Address [address] [place] [address] Care Team Providers Care Test Engineering Manager Name Role Phone Gabriele Johnson MD Unavailable [phone] Kiki Navas MD Unavailable [phone] Rajendra Marmolejo MD Unavailable [phone] Allergies No known active allergies Medications ibuprofen [...] EVERY MORNING ONLY TO FACE Active vit X-E-lsrztu-zinc-lutein 226-90-0.8-5 mg capsule Take by mouth Active [...] 06/15/2022 Assessment & Plan (06/15/2022 12:48 PM BOBBIN MARKER): Trial of topical steroid, will follow. Erectile dysfunction 07/09/2021 Assessment & Plan (01/11/2022 10:51 AM CDT): Clinically improved, continue current prescription medications. Assessment & Plan (07/09/2021 10:22 AM BOBBIN MARKER): Improved with Cialis, cont. Refill given. Blood pressure elevated without history of HTN 0 07/09/2021 Assessment & Plan (01/11/2022 10:51 AM CDT): Re-checked manually, BP within goal of < 140/90. Low sodium diet recommended. Assessment & Plan (07/09/2021 10:22 AM BOBBIN MARKER): BP within normal range. Check bps at home. BP goal < 140/90. Pure hypercholesterolemia 07/09/2021 Assessment & Plan (01/11/2022 10:50 AM CDT): LDL near goal of < 100, low chol diet recommended, will follow. Assessment & Plan (07/09/2021 10:21 AM BOBBIN MARKER): LDL nearing goal of < 100. Advised patient to quit smoking. Labs ordered. Cont current Rx meds. Rosacea, acne 07/09/2021 Hx of colonic polyps 08/01/2020 Overview (08/01/2020): Added automatically from request for surgery [id number] Lumbar disc disease 06/14/2017 Alcohol induced fatty liver 06/14/2017 Cigarette nicotine dependence without complicati on 10/13/2013 Assessment & Plan (01/11/2022 10:52 AM CDT): Advised patient to quit smoking. PATIENT REFUSED LUNG CANCER SCREENING. Cites no coverage with insurance as the reason. Assessment & Plan (07/09/2021 10:22 AM BOBBIN MARKER): Advised patient to quit smoking. Gastroesophageal reflux disease 10/13/2013 Overview (09/03/2016): ESOPHAGEAL REFLUX Obstructive sleep apnea syndrome 03/01/2012 Overview (09/04/2016): OBSTRUCTIVE SLEEP APNEA ILD (interstitial lung disease) Resolved Problems Problem Noted Date Diagnosed Date Resolved Date Eczema of external ear, bilateral 06/15/2022 06/15/2022 Encounter for screening colonoscopy 08/01/2020 07/09/2021 Overview (08/01/2020): Added automatically from request for surgery [id number] Hypersomnia with sleep apnea 03/01/2012 06/14/2017 Overview [...] Date Smoking Tobacco: Every Day Cigarettes 1 36.4 Started: 05/30/1988 Smokeless Tobacco: Never Tobacco Cessation:Ready [...] on file Legal Sex Male 9:39 AM BOBBIN MARKER Gender Identity Not on file Sexual Orientation Not on file Last Filed Vital Signs Vital Sign Reading Time Taken Comments Blood Pressure 138/88 06/15/2022 8:19 AM BOBBIN MARKER Pulse 64 06/15/2022 8:19 AM BOBBIN MARKER Temperature 36.3 C (97.4 F) 06/15/2022 8:19 AM BOBBIN MARKER Respiratory Rate 18 06/15/2022 8:19 AM BOBBIN MARKER Oxygen Saturation 97% 06/15/2022 8:19 AM BOBBIN MARKER Inhaled Oxygen Concentration - - Weight 87.3 kg (192 lb 8 oz) 06/15/2022 8:19 AM BOBBIN MARKER Height 187.8 cm (6' 1.94 ) 06/15/2022 8:19 AM CS T Body Mass Index 24.76 06/15/2022 8:19 AM BOBBIN MARKER Plan of Treatment Not on file Procedures Procedure Name Priority Date/Time Associated Diagnosis Comments COLONOSCOPY 09/05/2020 9:08 AM CDT PSA SCREEN Routine 07/01/2020 7:[address] LUNG CANCER SCREENING Schedule Routine, Read Routine (OP Routine) 08/08/2017 6:50 AM CDT Encounter for screening for respiratory disorder Cigarette smoker SERUM HEPATITIS C AB Routine 06/04/2016 4:40 AM BOBBIN MARKER from Last 3 Months or Most Recently Relevant to Health Maintenance Results * COLONOSCOPY (09/05/2020 9:08 AM CDT) Anatomical Region Laterality Modality Other Narrative Procedure Note Dru Martinez MD - 09/05/2020 9:[address] [facility] Patient Name: Larry Gallo Procedure Date: 09/05/2020 9:08 AM Date of : 1960 Admit Type: Outpatient Age: 59 Gender: Male Attending MD: Dru Martinez M.D. Room: [facility] ENDOSCOPY ROOM 2 Note Status: Finalized Patient [...] scope was passed under direct vision. TheColonoscope [id number] was introduced through the anus and advanced [...] malignant neoplasm of colon CPT copyright 2019 [employer]. All rights reserved. The codes documented in this report are preliminary and upon edgerman reviewmay be revised to meet current compliance requirements. Recognized by the [employer] for promoting quality in endoscopy Dru Martinez MD ENDOSCOPY PROCEDURES Final Re sult * PSA screen (07/01/2020 7:08 AM BOBBIN MARKER) PSA 0.5 < OR = 4.0 ng/mL [facility] Comment: The total PSA value from [...] or absence of disease. 07/01/2020 7:08 AM BOBBIN MARKER 07/01/2020 7:12 AM BOBBIN MARKER Narrative [facility] - 07/02/2020 3:08 AM BOBBIN MARKER FASTING:YES FASTING: YES us Manuel Ortiz MD LAB BLOOD ORDERABLES Final Res ult [facility] [address] [place] [address] * CT Lung Cancer Screening (08/08/2017 6:50 [...] Serum Hepatitis C ab (06/04/2016 4:40 AM BOBBIN MARKER) HCV ab NON-REACTI VE NON-REACTI VE CDR HISTORICAL RESULTS Hepatitis signal to cutoff ratio 0.06 <1.00 CDR HISTORICAL RESULTS Serum 06/04/2016 4:40 AM BOBBIN MARKER Narrative [facility]R HISTORICAL RESULTS - 06/05/2016 6:00 AM BOBBIN MARKER Test performed at [facility] [place] [address] [place] [address] Director: RAMIRO PICKETT DO,MPH us Historical Provider LAB BLOOD ORDERABLES Maria Alejandra kaur Result CDR HISTORICAL RESULTS from Last 3 Months or Most Recently Relevant to Health Maintenance Insurance [facility] CHOICE PLUS [facility] PPO [facility] HMO/PPO Address: [facility] [address] [place] [address] AETNA [facility] CHOICE PLUS Advance Directives For more information, please contact: [phone] * Full Code (Latest Code Status on File) Date Activated Date Inactivated Comments 09/05/2020 9:10 AM 09/05/2020 3:20 PM * Full Code Date Activated Date Inactivated Comments 09/05/2020 9:10 AM 09/05/2020 9:10 AM Care Teams Test Engineering Manager Relationship Specialty Start Date End Date Gabriele Johnson MD [address] [place] [address] Referring Physician Dermatology 07/09/21 Kiki Navas MD [address] [address] Referring Physician Pulmonary Disease 07/09/21 Rajendra Marmolejo MD [address] [address] Referring Physician Emergency Medicine 06/15/22
--- OUTSIDE RECORDS SUMMARY | 2024-10-10 15:30 | XMS_ITS | Encounter Summary ---
Author Organization [facility] Address [address] [place] [address] Care Team Providers Care Imaging Assistant Name Role Phone Unavailable Primary Care Provider Unavailabl e Encounter Details Date Type Department Care Team (Late st Contact Info) Description 06/07/2023 Lab Requisition [facility] [address] [place] [phone] Gabriele Johnson MD [address] [place] [address] Social History Tobacco Use Types Packs/Day Years Used Date Smoking Tobacco: Never Assessed Sex and Gender Information Value Date Recorded Sex Assigned at Not on file Legal Sex Male 6:41 PM WEB CONTENT WRITER Gender Identity Not on file Sexual Orientation Not on file documented as of this encounter Plan of Treatment Not on file documented as of this encounter Procedures Procedure Name Priority Date/Time Associated Diagnosis Comments DERMATOPATHOLOGY Routine 06/06/2023 12:0 0 AM WEB CONTENT WRITER documented in this encounter Results * DERMATOPATHOLOGY (06/06/2023 12:00 AM WEB CONTENT WRITER) Case Report Dermatopathology Report Case: [id number] Authorizing Provider: Gabriele Johnson MD Collected: 06/06/2023 12:00 AM Ordering Location: [facility] Received: 06/07/2023 12:04 PM Pathologist: Floyd Espinoza MD Specimen: Skin, toenail 2:16 PM WEB CONTENT WRITER DERMATOPATHOLOGY LABORATORY Final Diagnosis Specimen A. SKIN, toenail: ONYCHOMYCOSIS (B35.1) 2:16 PM WEB CONTENT WRITER DERMATOPATHOLOGY LABORATORY Clinical History R/O Fungus for PAS Stain 2:16 PM [facility] DERMATOPATHOLOGY LABORATORY Gross Description Specimen A: Received is one formalin filled container labeled with the patient's name and designated toenail. The specimen consists of a nail clipping measuring 16g60g6 mm. Jar 0+. 2:16 PM [facility] DERMATOPATHOLOGY LABORATORY Microscopic Description Specimen A. SKIN, toenail: Sections show nail plate. Fungal hyphae are present on Periodic acid-Blanca (PAS) stained sections. 2:16 PM [facility] DERMATOPATHOLOGY LABORATORY Disclaimer An external and internal positive and negative controls are appropriate for the histochemical, immunohistochemical and immunofluorescence stain(s) in this case (if any), except where stated explicitly. The performance characteristics of the stain(s) cited in this report were developed and its performance characteristic determined by the Dermatopathology Laboratory at [facility], directed by Dr. Derick Espinoza. These tests need not be, and therefore are not, approved by the [place] Food and Drug Administration. The tests are used for clinical purposes. Billing Codes Specimen Charges Stain Charges 04294 1 90935 1 4 2:16 PM [facility] DERMATOPATHOLOGY LABORATORY Embedded Images 2:16 PM [facility] DERMATOPATHOLOGY LABORATORY Pathology/Cytolog y TISSUE SPECIMEN FROM SKIN / Unknown 06/06/2023 06/07/2023 12:04 PM WEB CONTENT WRITER Gabriele Johnson MD LAB - PATHOLOGY/CYTOLOGY ORD ERABLES Final Result DERMATOPATHOLOGY LABORATORY [facility] - Department of Dermatology [address], [address] Floor [address] [phone] documented in this encounter Visit Diagnoses Not on filedocumented in this encounter
--- OUTSIDE RECORDS SUMMARY | 2024-10-10 15:30 | XMS_ITS | Clinical Summary ---
Author Organization [facility] Address [address] [place] [address] Care Team Providers Care Lumber Straightened Name Role Phone Unavailable Primary Care Provider Unavailabl e Source Comments [facility],non-owned Affiliates and Associated Physician Practices is amultiple site organization consisting of ambulatory clinics and hospital sitesin [place], [place], [place] and [place]. This disclosure is being madepursuant to the Care Everywhere program and may not contain all information available regarding this patient. Last updated 18.[facility] Attensa Social History Tobacco Use Types Packs/Day Years Used Date Smoking Tobacco: Never Assessed Sex and Gender Information Value Date Recorded Sex Assigned at Not on file Legal Sex Male 6:41 PM AUTOMOTIVE PARTS ADVISOR Gender Identity Not on file Sexual Orientation [...] patient's age to complete this topic Insurance [facility]
--- OUTSIDE RECORDS SUMMARY | 2024-10-10 15:30 | XMS_ITS | Encounter Summary ---
Author Organization [facility] Address [address] [place] [address] Care Team Providers Care Research Laboratory Manager Name Role Phone Unavailable Primary Care Provider Unavailabl e Encounter Details Date Type Department Care Team (Late st Contact Info) Description 09/24/2020 Lab Requisition [facility] Lab [address] [place] [address] Gabriele Johnson MD [address] [place] [address] Social History Tobacco Use Types Packs/Day Years Used Date Smoking Tobacco: Never Assessed Sex and Gender Information Value Date Recorded Sex Assigned at Not on file Legal Sex Male 6:41 PM AERIAL HURRICANE HUNTER Gender Identity Not on file Sexual Orientation Not on file documented as of this encounter Plan of Treatment Not on file documented as of this encounter Procedures Procedure Name Priority Date/Time Associated Diagnosis Comments DERMATOPATHOLOGY Routine 09/23/2020 12:0 0 AM CDT documented in this encounter Results * DERMATOPATHOLOGY (09/23/2020 12:00 AM CDT) Case Report Dermatopathology Report Case: [id number] Authorizing Provider: Gabriele Johnson MD Collected: 09/23/2020 12:00 AM Ordering Location: [facility] Received: 09/24/2020 12:35 PM [...] characteristic determined by the Dermatopathology Laboratory at [facility], directed by Dr. Derick Espinoza. These tests need not be, and therefore are not, approved by the [place] Food and Drug Administration. The tests are used for clinical purposes. Billing Codes Specimen Charges Stain Charges 10097 1 91654 01911 1 1 1 4:04 PM CDT DERMATOPATHOLOGY LABORATORY Embedded Images 1 4:04 PM T DERMATOPATHOLOGY LABORATORY Pathology/Cytolog y TISSUE SPECIMEN FROM SKIN / Unknown 09/23/2020 09/24/2020 12:35 PM CDT Gabriele Johnson MD LAB - PATHOLOGY/CYTOLOGY ORD ERABLES Final Result DERMATOPATHOLOGY LABORATORY [facility] - Department of Dermatology [address], [address] [phone] documented in this encounter Visit Diagnoses Not on filedocumented in this encounter
--- OUTSIDE RECORDS SUMMARY | 2024-10-10 15:30 | XMS_ITS | Clinical Summary ---
Author Organization [facility] Address [address] [place] [address] Care Team Providers Care Exhibit Display Representative Name Role Phone Gabriele Johnson MD Unavailable [phone] Kiki Navas MD Unavailable [phone] Rajendra Marmolejo MD Unavailable [phone] Allergies No known active allergies Medications ibuprofen [...] EVERY MORNING ONLY TO FACE Active vit L-H-ozamgp-zinc-lutein 226-90-0.8-5 mg capsule Take by mouth Active [...] 06/15/2022 Assessment & Plan (06/15/2022 12:48 PM MEDICAL ASSISTANT): Trial of topical steroid, will follow. Erectile dysfunction 07/09/2021 Assessment & Plan (01/11/2022 10:51 AM CDT): Clinically improved, continue current prescription medications. Assessment & Plan (07/09/2021 10:22 AM MEDICAL ASSISTANT): Improved with Cialis, cont. Refill given. Blood pressure elevated without history of HTN 0 07/09/2021 Assessment & Plan (01/11/2022 10:51 AM CDT): Re-checked manually, BP within goal of < 140/90. Low sodium diet recommended. Assessment & Plan (07/09/2021 10:22 AM MEDICAL ASSISTANT): BP within normal range. Check bps at home. BP goal < 140/90. Pure hypercholesterolemia 07/09/2021 Assessment & Plan (01/11/2022 10:50 AM CDT): LDL near goal of < 100, low chol diet recommended, will follow. Assessment & Plan (07/09/2021 10:21 AM MEDICAL ASSISTANT): LDL nearing goal of < 100. Advised patient to quit smoking. Labs ordered. Cont current Rx meds. Rosacea, acne 07/09/2021 Hx of colonic polyps 08/01/2020 Overview (08/01/2020): Added automatically from request for surgery [id number] Lumbar disc disease 06/14/2017 Alcohol induced fatty liver 06/14/2017 Cigarette nicotine dependence without complicati on 10/13/2013 Assessment & Plan (01/11/2022 10:52 AM CDT): Advised patient to quit smoking. PATIENT REFUSED LUNG CANCER SCREENING. Cites no coverage with insurance as the reason. Assessment & Plan (07/09/2021 10:22 AM MEDICAL ASSISTANT): Advised patient to quit smoking. Gastroesophageal reflux disease 10/13/2013 Overview (09/03/2016): ESOPHAGEAL REFLUX Obstructive sleep apnea syndrome 03/01/2012 Overview (09/04/2016): OBSTRUCTIVE SLEEP APNEA ILD (interstitial lung disease) Resolved Problems Problem Noted Date Diagnosed Date Resolved Date Eczema of external ear, bilateral 06/15/2022 06/15/2022 Encounter for screening colonoscopy 08/01/2020 07/09/2021 Overview (08/01/2020): Added automatically from request for surgery [id number] Hypersomnia with sleep apnea 03/01/2012 06/14/2017 Overview [...] Hx Other Medical Back Pain; Comm ents: [facility] 10/08/2014 - Hx Other Medical Eye Cancer 2014 ; Comments: [facility] 10/08/2014 - Hx Other Medical rt Knee 2011; C omments: [facility] 10/08/2014 - Hx Other Medical broken wrist [age]; Comments: [facility] 10/08/2014 - Family History Medical History [...] on file Legal Sex Male 9:39 AM MEDICAL ASSISTANT Gender Identity Not on file Sexual Orientation Not on file Obstetrics History Last Filed Vital Signs Vital Sign Reading Time Taken Comments Blood Pressure 138/88 06/15/2022 8:19 AM MEDICAL ASSISTANT Pulse 64 06/15/2022 8:19 AM MEDICAL ASSISTANT Temperature 36.3 C (97.4 F) 06/15/2022 8:19 AM MEDICAL ASSISTANT Respiratory Rate 18 06/15/2022 8:19 AM MEDICAL ASSISTANT Oxygen Saturation 97% 06/15/2022 8:19 AM MEDICAL ASSISTANT Inhaled Oxygen Concentration - - Weight 87.3 kg (192 lb 8 oz) 06/15/2022 8:19 AM MEDICAL ASSISTANT Height 187.8 cm (6' 1.94 ) 06/15/2022 8:19 AM CS T Body Mass Index 24.76 06/15/2022 8:19 AM MEDICAL ASSISTANT Plan of Treatment Health Maintenance Due Date [...] CDT PSA SCREEN Routine 07/01/2020 7:[address] LUNG CANCER SCREENING Schedule Routine, Read Routine (OP Routine) 08/08/2017 6:50 AM CDT Encounter for screening for respiratory disorder Cigarette smoker SERUM HEPATITIS C AB Routine 06/04/2016 4:40 AM MEDICAL ASSISTANT from Last 3 Months or Most Recently Relevant to Health Maintenance Results * COLONOSCOPY (09/05/2020 9:08 AM CDT) Anatomical Region Laterality Modality Other Narrative Procedure Note Dru Martinez MD - 09/05/2020 9:08 AM CDT [facility] Patient Name: Larry Gallo Procedure Date: 09/05/2020 9:08 AM Date of : 1960 Admit Type: Outpatient Age: 59 Gender: Male Attending MD: Dru Martinez M.D. Room: [facility] ENDOSCOPY ROOM 2 Note Status: Finalized Patient [...] scope was passed under direct vision. TheColonoscope [id number] was introduced through the anus and advanced [...] malignant neoplasm of colon CPT copyright 2019 [employer]. All rights reserved. The codes documented in this report are preliminary and upon music leader reviewmay be revised to meet current compliance requirements. Recognized by the [employer] for promoting quality in endoscopy Dru Martinez MD ENDOSCOPY PROCEDURES Final Re sult * PSA screen (07/01/2020 7:08 AM MEDICAL ASSISTANT) PSA 0.5 < OR = 4.0 ng/mL [...] or absence of disease. 07/01/2020 7:08 AM MEDICAL ASSISTANT 07/01/2020 7:12 AM MEDICAL ASSISTANT Narrative [facility] - 07/02/2020 3:08 AM MEDICAL ASSISTANT FASTING:YES FASTING: YES us Manuel Ortiz MD LAB BLOOD ORDERABLES Final Res ult [facility] [address] [place] [address] * CT Lung Cancer Screening (08/08/2017 6:50 [...] Serum Hepatitis C ab (06/04/2016 4:40 AM MEDICAL ASSISTANT) HCV ab NON-REACTI VE NON-REACTI VE CDR HISTORICAL RESULTS Hepatitis signal to cutoff ratio 0.06 <1.00 CDR HISTORICAL RESULTS Serum 06/04/2016 4:40 AM MEDICAL ASSISTANT Narrative CDR HISTORICAL RESULTS - 06/05/2016 6:00 AM MEDICAL ASSISTANT Test performed at [facility] [facility] [address] [phone] Director: RAMIRO PICKETT DO,MPH Historical Provider LAB BLOOD ORDERABLES Maria Alejandra l Result CDR HISTORICAL RESULTS from Last 3 Months or Most Recently Relevant to Health Maintenance Insurance [facility] CHOICE PLUS [facility] PPO AET [facility] CHOICE PLUS Advance Directives For more information, please contact: [phone] * Full Code (Latest Code Status on File) Date Activated Date Inactivated Comments 09/05/2020 9:10 AM 09/05/2020 3:20 PM * Full Code Date Activated Date Inactivated Comments 09/05/2020 9:10 AM 09/05/2020 9:10 AM Care Teams Exhibit Display Representative Relationship Specialty Start Date End Date Gabriele Johnson MD [address] [place] [address] Referring Physician Dermatology 07/09/21 Kiki Navas MD [address] [address] Referring Physician Pulmonary Disease 07/09/21 Rajendra Marmolejo MD [address] [address] Referring Physician Emergency Medicine 06/15/22
== END 2024-10-10 15:28 | disposition home or self-care (01) ==
PROVIDERS: PCP Family Medicine; Visit Provider Family Medicine
DX: I65.23 Occlusion and stenosis of bilateral carotid arteries (principal); F17.210 Nicotine dependence, cigarettes, uncomplicated; Z80.1 Family history of malignant neoplasm of trachea, bronchus and lung
CPT/HCPCS: 71271; 93880

== ENCOUNTER 2025-03-07 08:29 | Outpatient (CLI) | payer MEDICARE, SELFPAY ==
[2025-03-07 19:24] LABS: Hematocrit 44.2 % (42.0-52.0); Hemoglobin 13.8 g/dL (14.0-18.0); Immature Granulocyte Percent A 0.2 % (0-0.5); Lymphocytes Absolute Auto 2.53 K/mm3 (0.9-3.2); Mean Corpuscular HGB Conc 31.2 g/dl (32-36); Mean Corpuscular Hemoglobin 30.3 pg (26-34); Mean Corpuscular Volume 97.1 fl (80-100); Nucleated Red Blood Cells Absolute Auto 0.000 K/mm3 (0.0-0.012); Nucleated Red Blood Cells Perc 0.0 % (0.0-0.2); Platelet Count Result 171 k/mm3 (150-375); Red Blood Count 4.55 M/mm3 (4.6-6.20); White Blood Count 6.2 K/mm3 (4.5-10.0)
[2025-03-07 19:34] LABS: Alanine Aminotransferase 32 U/L (6-50); Albumin Level 4.5 g/dL (3.5-5.1); Alkaline Phosphatase 65 U/L (38-126); Anion Gap 9 mmol/L (4-12); Aspartate Amino Transferase 63 U/L (17-59); Bilirubin,Total 0.8 mg/dL (0.2-1.3); Blood Urea Nitrogen 13 mg/dL (9-20); Calcium 9.1 mg/dL (8.4-10.2); Carbon Dioxide 26 mmol/L (22-30); Chloride 103 mmol/L (98-107); Estimated Glomerular Filt Rate > 60; Glucose 90 mg/dL (65-110); Potassium 4.8 mmol/L (3.4-5.0); Sodium 138 mmol/L (137-145); Total Protein 7.6 g/dL (6.3-8.2)
[2025-03-07 20:10] LABS: Prostate Specific Antigen 0.7 ng/mL (< OR = 4.0)
[2025-03-07 20:29] LABS: Vitamin B12 378.0 pg/mL (239-931)
== END 2025-03-07 08:30 | disposition home or self-care (01) ==
PROVIDERS: PCP Family Medicine; Visit Provider Family Medicine
DX: R74.01 Elevation of levels of liver transaminase levels (principal); R74.8 Abnormal levels of other serum enzymes; R53.83 Other fatigue; Z00.00 Encounter for general adult medical examination without abnormal findings; F17.210 Nicotine dependence, cigarettes, uncomplicated; R79.89 Other specified abnormal findings of blood chemistry; Z12.5 Encounter for screening for malignant neoplasm of prostate; E55.9 Vitamin D deficiency, unspecified
CPT/HCPCS: 36415; 80053; 82306; 82607; 84153; 85025; G0103

== ENCOUNTER 2025-03-11 09:14 | Outpatient (CLI) | payer MEDICARE, SELFPAY ==
--- OUTSIDE RECORDS SUMMARY | 2025-03-11 09:42 | XMS_ITS | Clinical Summary ---
Author Organization [facility] Address [address] [place] [address] Phone Care Team Providers Care Correctional Captain Name Role Phone Rober Cabral MD Primary Care Provider [phone] Allergies No known active allergies Medications No [...] Comments Blood Pressure 137/78 06/03/2023 2:00 PM AUTOMOTIVE PRODUCT ENGINEER Pulse 78 06/03/2023 2:00 PM AUTOMOTIVE PRODUCT ENGINEER Temperature 36.1 C (96.9 F) 06/03/2023 9:44 AM AUTOMOTIVE PRODUCT ENGINEER Respiratory Rate 18 06/03/2023 2:00 PM AUTOMOTIVE PRODUCT ENGINEER Oxygen Saturation 100% 06/03/2023 2:00 PM AUTOMOTIVE PRODUCT ENGINEER Inhaled Oxygen Concentration - - Weight 86.5 kg (190 lb 11.2 oz) 06/03/2023 9:44 AM AUTOMOTIVE PRODUCT ENGINEER Height 188 cm (6' 2) 06/03/2023 9:44 AM AUTOMOTIVE PRODUCT ENGINEER Body Mass Index 24.48 06/03/2023 9:44 AM AUTOMOTIVE PRODUCT ENGINEER Plan of Treatment Health Maintenance Due Date Last Done Comments Hepatitis C Virus (HCV) Screening 1960 Hepatitis B Immunization (2 of 3 - 19+ 3-dose series) 06/27/2003 05/30/2003 Cologuard 12/07/2003 Colonoscopy 12/07/2003 Colorectal Cancer Screening 12/07/2003 Immunochemical Fecal Occult Blood 12/07/2003 Pneumococcal Immunization (50+ years) (1 of 1 - PCV) 2008 PSA Discussion 2013 Influenza Immunization (#1) 01/28/202503/30, 02/27/2021, 02/28/2020, Additional history exists SARS-COV-2 Immunization (2024- season) 2025 03/31/2021, 08/15/2020, 07/24/2020 Respiratory Syncytial Virus (RSV) Immunization (Adult) (1 - 1-dose 75+ series) 2033 Zoster Immunization Completed 06/06/2018, 03/24/2018, 04/09/2015 DTaP/Tdap/Td Immunization Discontinued 2018, 03/28/2012, 01/28/2002 TdaP Immunization Completed 04/15/2019, , 01/28/2002 Human Papillomavirus (HPV) Immunization Aged Out No longer eligible based on patient's age to complete this topic Meningococcal Immunization (ACWY) Aged Out No longer eligible based on patient's age to complete this topic Rotavirus Immunization Aged Out No lo nger eligible based on patient's age to complete this topic Insurance Care Teams Correctional Captain Relationship Specialty Start Date End Date Rober Cabral MD PCP - General Family Medicine 06/03/23
--- OUTSIDE RECORDS SUMMARY | 2025-03-11 09:42 | XMS_ITS | Encounter Summary ---
Author Organization [facility] Address [address] [place] [address] Care Team Providers Care Tire And Lube Technician Name Role Phone Unavailable Primary Care Provider Unavailabl e Encounter Details Date Type Department Care Team (Late st Contact Info) Description 06/07/2023 Lab Requisition [facility] - DermPath Lab [address] [place] [phone] Gabriele Johnson MD [address] [place] [address] Social History Tobacco Use Types Packs/Day Years Used Date Smoking Tobacco: Never Assessed Sex and Gender Information Value Date Recorded Sex Assigned at Not on file Legal Sex Male 6:41 PM SUPERVISOR ESTIMATOR AND DRAFTER Gender Identity Not on file Sexual Orientation Not on file documented as of this encounter Plan of Treatment Not on file documented as of this encounter Procedures Procedure Name Priority Date/Time Associated Diagnosis Comments DERMATOPATHOLOGY Routine 06/06/2023 12:0 0 AM SUPERVISOR ESTIMATOR AND DRAFTER documented in this encounter Results * DERMATOPATHOLOGY (06/06/2023 12:00 AM SUPERVISOR ESTIMATOR AND DRAFTER) Case Report Dermatopathology Report Case: [id number] Authorizing Provider: Gabriele Johnson MD Collected: 06/06/2023 12:00 AM Ordering Location: [facility] Received: 06/07/2023 12:04 PM Pathologist: Floyd Espinoza MD Specimen: Skin, toenail 2:16 PM SUPERVISOR ESTIMATOR AND DRAFTER DERMATOPATHOLOGY LABORATORY Final Diagnosis Specimen A. SKIN, toenail: ONYCHOMYCOSIS (B35.1) 2:16 PM SUPERVISOR ESTIMATOR AND DRAFTER DERMATOPATHOLOGY LABORATORY at [address]16 SUPERVISOR ESTIMATOR AND DRAFTER Clinical History R/O Fungus for PAS Stain 2:16 PM [facility] DERMATOPATHOLOGY LABORATORY Gross Description Specimen A: Received is one formalin filled container labeled with the patient's name and designated toenail. The specimen consists of a nail clipping measuring 92a35u4 mm. Jar 0+. 2:16 PM [facility] DERMATOPATHOLOGY LABORATORY Microscopic Description Specimen A. SKIN, toenail: Sections show nail plate. Fungal hyphae are present on Periodic acid-Blanca (PAS) stained sections. 2:16 PM [facility] DERMATOPATHOLOGY LABORATORY Disclaimer An external and [...] purposes. Billing Codes Specimen Charges Stain Charges 64664 1 74710 1 4 2:16 PM [facility] DERMATOPATHOLOGY LABORATORY Embedded Images 2:16 PM [facility] DERMATOPATHOLOGY LABORATORY Pathology/Cytolog y TISSUE SPECIMEN FROM SKIN / Unknown 06/06/2023 06/07/2023 12:04 PM SUPERVISOR ESTIMATOR AND DRAFTER Gabriele Johnson MD LAB - PATHOLOGY/CYTOLOGY ORD ERABLES Final Result DERMATOPATHOLOGY LABORATORY [facility] - Department of Dermatology [address] [phone] documented in this encounter Visit Diagnoses Not on filedocumented in this encounter
--- OUTSIDE RECORDS SUMMARY | 2025-03-11 09:42 | XMS_ITS | Clinical Summary ---
Author Organization [facility] Address [address] [place] [address] Care Team Providers Care Manager In Training Name Role Phone Gabriele Johnson MD Unavailable [phone] Kiki Navas MD Unavailable [phone] Rajendra Marmolejo MD Unavailable [phone] Allergies No known active allergies Medications ibuprofen [...] EVERY MORNING ONLY TO FACE Active vit I-X-gujhvm-zinc-lutein 226-90-0.8-5 mg capsule Take by mouth Active [...] 06/15/2022 Assessment & Plan (06/15/2022 12:48 PM HOTEL OFFICE MANAGER): Trial of topical steroid, will follow. Erectile dysfunction 07/09/2021 Assessment & Plan (01/11/2022 10:51 AM CDT): Clinically improved, continue current prescription medications. Assessment & Plan (07/09/2021 10:22 AM HOTEL OFFICE MANAGER): Improved with Cialis, cont. Refill given. Blood pressure elevated without history of HTN 0 07/09/2021 Assessment & Plan (01/11/2022 10:51 AM CDT): Re-checked manually, BP within goal of < 140/90. Low sodium diet recommended. Assessment & Plan (07/09/2021 10:22 AM HOTEL OFFICE MANAGER): BP within normal range. Check bps at home. BP goal < 140/90. Pure hypercholesterolemia 07/09/2021 Assessment & Plan (01/11/2022 10:50 AM CDT): LDL near goal of < 100, low chol diet recommended, will follow. Assessment & Plan (07/09/2021 10:21 AM HOTEL OFFICE MANAGER): LDL nearing goal of < 100. Advised patient to quit smoking. Labs ordered. Cont current Rx meds. Rosacea, acne 07/09/2021 Hx of colonic polyps 08/01/2020 Overview (08/01/2020): Added automatically from request for surgery [id number] Lumbar disc disease 06/14/2017 Alcohol induced fatty liver 06/14/2017 Cigarette nicotine dependence without complicati on 10/13/2013 Assessment & Plan (01/11/2022 10:52 AM CDT): Advised patient to quit smoking. PATIENT REFUSED LUNG CANCER SCREENING. Cites no coverage with insurance as the reason. Assessment & Plan (07/09/2021 10:22 AM HOTEL OFFICE MANAGER): Advised patient to quit smoking. Gastroesophageal reflux disease 10/13/2013 Overview (09/03/2016): ESOPHAGEAL REFLUX Obstructive sleep apnea syndrome 03/01/2012 Overview (09/04/2016): OBSTRUCTIVE SLEEP APNEA ILD (interstitial lung disease) Resolved Problems Problem Noted Date Diagnosed Date Resolved Date Eczema of external ear, bilateral 06/15/2022 06/15/2022 Encounter for screening colonoscopy 08/01/2020 07/09/2021 Overview (08/01/2020): Added automatically from request for surgery [id number] Hypersomnia with sleep apnea 03/01/2012 06/14/2017 Overview [...] Hx Other Medical Back Pain; Comm ents: [facility] 10/08/2014 - Hx Other Medical Eye Cancer 2014 ; Comments: [facility] 10/08/2014 - Hx Other Medical rt Knee 2011; C omments: [facility] 10/08/2014 - Hx Other Medical broken wrist [age]; Comments: [facility] 10/08/2014 - Family History Medical History Relation [...] Date Smoking Tobacco: Every Day Cigarettes 1 36.8 Started: 05/30/1988 Smokeless Tobacco: Never Tobacco Cessation:Ready [...] on file Legal Sex Male 9:39 AM HOTEL OFFICE MANAGER Gender Identity Not on file Sexual Orientation Not on file Obstetrics History Last Filed Vital Signs Vital Sign Reading Time Taken Comments Blood Pressure 138/88 06/15/2022 8:19 AM HOTEL OFFICE MANAGER Pulse 64 06/15/2022 8:19 AM HOTEL OFFICE MANAGER Temperature 36.3 C (97.4 F) 06/15/2022 8:19 AM HOTEL OFFICE MANAGER Respiratory Rate 18 06/15/2022 8:19 AM HOTEL OFFICE MANAGER Oxygen Saturation 97% 06/15/2022 8:19 AM HOTEL OFFICE MANAGER Inhaled Oxygen Concentration - - Weight 87.3 kg (192 lb 8 oz) 06/15/2022 8:19 AM HOTEL OFFICE MANAGER Height 187.8 cm (6' 1.94) 06/15/2022 8:19 AM CS T Body Mass Index 24.76 06/15/2022 8:19 AM HOTEL OFFICE MANAGER Plan of Treatment Health Maintenance Due Date [...] 0306/2020, 06/29/2019, Additional history exists Covid-19 Vaccine (2024- 6 season) 2025 03/31/2021, 08/15/2020, 07/24/2020 Influenza Vaccine (#1) 2025 2, 02/27/2021, 02/28/2020, Additional history exists Colon Cancer [...] CDT PSA SCREEN Routine 07/01/2020 7:[address] LUNG CANCER SCREENING Schedule Routine, Read Routine (OP Routine) 08/08/2017 6:50 AM CDT Encounter for screening for respiratory disorder Cigarette smoker SERUM HEPATITIS C AB Routine 06/04/2016 4:40 AM HOTEL OFFICE MANAGER from Last 3 Months or Most Recently Relevant to Health Maintenance Results * COLONOSCOPY (09/05/2020 9:08 AM CDT) Anatomical Region Laterality Modality Other Narrative Procedure Note Dru Martinez MD - 09/05/2020 9:08 AM CDT [facility] Patient Name: Larry Gallo Procedure Date: 09/05/2020 9:08 AM Date of : 1960 Admit Type: Outpatient Age: 59 Gender: Male Attending MD: Dru Martinez M.D. Room: [facility] ENDOSCOPY ROOM 2 Note Status: [...] scope was passed under direct vision. TheColonoscope [id number] was introduced through the anus and advanced [...] malignant neoplasm of colon CPT copyright 2019 [employer]. All rights reserved. The codes documented in this report are preliminary and upon inspector circuitry negative reviewmay be revised to meet current compliance requirements. Recognized by the [employer] for promoting quality in endoscopy Dru Martinez MD ENDOSCOPY PROCEDURES Final Re sult * PSA screen (07/01/2020 7:08 AM HOTEL OFFICE MANAGER) PSA 0.5 < OR = 4.0 ng/mL [...] or absence of disease. 07/01/2020 7:08 AM HOTEL OFFICE MANAGER 07/01/2020 7:12 AM HOTEL OFFICE MANAGER Narrative [facility] - 07/02/2020 3:08 AM HOTEL OFFICE MANAGER FASTING:YES FASTING: YES us Manuel Ortiz MD LAB BLOOD ORDERABLES Final Res ult CATHERINE [facility] [address] [place] [address] * CT Lung Cancer Screening (08/08/2017 6:50 [...] Serum Hepatitis C ab (06/04/2016 4:40 AM HOTEL OFFICE MANAGER) HCV ab NON-REACTI VE NON-REACTI VE CDR HISTORICAL RESULTS Hepatitis signal to cutoff ratio 0.06 <1.00 CDR HISTORICAL RESULTS Serum 06/04/2016 4:40 AM HOTEL OFFICE MANAGER Narrative CDR HISTORICAL RESULTS - 06/05/2016 6:00 AM HOTEL OFFICE MANAGER Test performed at [facility] [address] [address] Director: RAMIRO PICKETT DO,MPH Historical Provider LAB BLOOD ORDERABLES Maria Alejandra l Result CDR HISTORICAL RESULTS from Last 3 Months or Most Recently Relevant to Health Maintenance Insurance [facility] CHOICE PLUS [facility] PPO AET [facility] CHOICE PLUS Advance Directives For more information, please contact: [phone] * Full Code (Latest Code Status on File) Date Activated Date Inactivated Comments 09/05/2020 9:10 AM 09/05/2020 3:20 PM * Full Code Date Activated Date Inactivated Comments 09/05/2020 9:10 AM 09/05/2020 9:10 AM Care Teams Manager In Training Relationship Specialty Start Date End Date Gabriele Johnson MD [address] [address] Referring Physician Dermatology 07/09/21 Kiki Navas MD [address] [place] [address] Referring Physician Pulmonary Disease 07/09/21 Rajendra Marmolejo MD [address] [place] [address] Referring Physician Emergency Medicine 06/15/22
--- OUTSIDE RECORDS SUMMARY | 2025-03-11 09:42 | XMS_ITS | Clinical Summary ---
Author Organization [facility] Address [address] [place] [address] Care Team Providers Care Behavioral Services Tech Name Role Phone Unavailable Primary Care Provider Unavailabl e Source Comments [facility],non-owned Affiliates and Associated Physician Practices is amultiple site organization consisting of ambulatory clinics and hospital sitesin [place], [place], [place] and [place]. This disclosure is being madepursuant to the Care Everywhere program and may not contain all information available regarding this patient. Last updated 18.[facility] [employer] Social History Tobacco Use Types Packs/Day Years Used Date Smoking Tobacco: Never Assessed Sex and Gender Information Value Date Recorded Sex Assigned at Not on file Legal Sex Male 6:41 PM PLANT INSPECTOR Gender Identity Not on file Sexual Orientation [...] COLON CA SCREENING 1960 LIPID TESTING 1960 HEPATITIS C SCREENING 12/01/1976 DTAP/TDAP/TD VACCINES (1 - Tdap) 1977 PNEUMOCOCCAL VACCINE 50+ (1 of 1 - PCV) 2008 ZOSTER VACCINE (1 of 2) 2008 DEPRESSION SCREENING 05/30/2024 COVID-19 VACCINE (1 - 2023-2 5 season) 2025 INFLUENZA VACCINE (#1) 2025 Respiratory Syncytial Virus (RSV) Vaccine Pt: [...] patient's age to complete this topic Insurance [facility]
--- OUTSIDE RECORDS SUMMARY | 2025-03-11 09:42 | XMS_ITS | Encounter Summary ---
Author Organization [facility] Address [address] [place] [address] Care Team Providers Care Veneer Sorter Name Role Phone Unavailable Primary Care Provider Unavailabl e Encounter Details Date Type Department Care Team (Late st Contact Info) Description 09/24/2020 Lab Requisition [facility] DermPath Lab [address] [place] [address] Gabriele Johnson MD [address] [place] [address] Social History Tobacco Use Types Packs/Day Years Used Date Smoking Tobacco: Never Assessed Sex and Gender Information Value Date Recorded Sex Assigned at Not on file Legal Sex Male 6:41 PM MASTER MERCHANDISER Gender Identity Not on file Sexual Orientation Not on file documented as of this encounter Plan of Treatment Not on file documented as of this encounter Procedures Procedure Name Priority Date/Time Associated Diagnosis Comments DERMATOPATHOLOGY Routine 09/23/2020 12:0 0 AM CDT documented in this encounter Results * DERMATOPATHOLOGY (09/23/2020 12:00 AM CDT) Case Report Dermatopathology Report Case: [id number] Authorizing Provider: Gabriele Johnson MD Collected: 09/23/2020 12:00 AM Ordering Location: [facility] DermPath Lab Received: 09/24/2020 12:35 PM Pathologist: Yu Farnsworth MD Specimen: Skin, left upper lip under nostril 4:04 PM CDT DERMATOPATHOLOGY LABORATORY Final Diagnosis Specimen A. SKIN, left upper lip under nostril: TRICHILEMMOMA (TRICHOLEMMOMA) (D23.9) PRESENT AT MARGIN (see microscopic description) 4:04 PM CDT DERMATOPATHOLOGY LABORATORY at 1604 CDT Clinical History R/O HAK, SCC, BCC, VV [...] characteristic determined by the Dermatopathology Laboratory at [facility], directed by Dr. Derick Espinoza. These tests need not be, and therefore are not, approved by the [place] Food and Drug Administration. The tests are used for clinical purposes. Billing Codes Specimen Charges Stain Charges 02528 1 26667 24721 1 1 1 4:04 PM CDT DERMATOPATHOLOGY LABORATORY Embedded Images 1 4:04 PM CDT DERMATOPATHOLOGY LABORATORY Pathology/Cytolog y TISSUE SPECIMEN FROM SKIN / Unknown 09/23/2020 09/24/2020 12:35 PM CDT Gabriele Johnson MD LAB - PATHOLOGY/CYTOLOGY ORD ERABLES Final Result DERMATOPATHOLOGY LABORATORY [facility] - Department of Dermatology [address], [address] [phone] documented in this encounter Visit Diagnoses Not on filedocumented in this encounter
[2025-03-11 19:39] LABS: Iron 177 ug/dL (49-181)
[2025-03-11 19:40] LABS: IFOB Positive Control Positive; Immunochemical Fecal Occult Bl Negative (N)
[2025-03-11 19:52] LABS: Percent Iron Saturation 55 % (20-50)
[2025-03-11 20:21] LABS: Ferritin 236.00 ng/mL (11.1-264)
== END 2025-03-11 09:15 | disposition home or self-care (01) ==
LOC: ANHBWCLAB 09:15
PROVIDERS: PCP Family Medicine; Visit Provider Family Medicine
DX: R79.89 Other specified abnormal findings of blood chemistry (principal); D64.9 Anemia, unspecified
CPT/HCPCS: 36415; 82274; 82728; 83540; 83550

== ENCOUNTER 2025-03-25 07:21 | Outpatient (CLI) | payer MEDICARE, SELFPAY ==
--- NOTE | ~2025-03-25 | US_ITS ---
ULTRASOUND ABDOMEN LIMITED (RIGHT UPPER QUADRANT) Clinical History: R74.01 - Elevation of levels of liver transaminase levels Comparison: Ultrasound 07/25/2023 Technique: Right upper quadrant sonography Findings: Liver: Enlarged. Echogenic. No intrahepatic biliary ductal dilatation. Normal hepatopedal flow main portal vein. Micronodular contour. Common Duct: Normal caliber. 2 mm. Gallbladder: No stones. No wall thickening. No pericholecystic fluid. Pancreas: Obscured by bowel gas. IMPRESSION: 1. Hepatomegaly, with steatosis and/or hepatocellular disease. 2. Cirrhosis suspected. Reviewed, dictated and finalized at location R.
== END 2025-03-25 07:22 | disposition home or self-care (01) ==
PROVIDERS: PCP Family Medicine; Visit Provider Family Medicine
DX: R74.01 Elevation of levels of liver transaminase levels (principal); R16.0 Hepatomegaly, not elsewhere classified; K74.60 Unspecified cirrhosis of liver
CPT/HCPCS: 76705

== ENCOUNTER 2025-04-30 11:44 | Outpatient (CLI) | payer MEDICARE, SELFPAY ==
--- OUTSIDE RECORDS SUMMARY | 2025-04-30 12:45 | XMS_ITS | Clinical Summary ---
Author Organization [facility] Address [address] [place] [address] Phone Care Team Providers Care Automatic Profile Sander Operator Name Role Phone Rober Cabral MD Primary Care Provider [phone] Allergies No known active allergies Medications No [...] Comments Blood Pressure 137/78 06/03/2023 2:00 PM MILL HOUSE SUPERVISOR Pulse 78 06/03/2023 2:00 PM MILL HOUSE SUPERVISOR Temperature 36.1 C (96.9 F) 06/03/2023 9:44 AM MILL HOUSE SUPERVISOR Respiratory Rate 18 06/03/2023 2:00 PM MILL HOUSE SUPERVISOR Oxygen Saturation 100% 06/03/2023 2:00 PM MILL HOUSE SUPERVISOR Inhaled Oxygen Concentration - - Weight 86.5 kg (190 lb 11.2 oz) 06/03/2023 9:44 AM MILL HOUSE SUPERVISOR Height 188 cm (6' 2) 06/03/2023 9:44 AM MILL HOUSE SUPERVISOR Body Mass Index 24.48 06/03/2023 9:44 AM MILL HOUSE SUPERVISOR Plan of Treatment Health Maintenance Due Date [...] to complete this topic Insurance Care Teams Automatic Profile Sander Operator Relationship Specialty Start Date End Date Rober Cabral MD PCP - General Family Medicine 06/03/23
--- OUTSIDE RECORDS SUMMARY | 2025-04-30 12:45 | XMS_ITS | Encounter Summary ---
Author Organization [facility] Address [address] [place] [address] Care Team Providers Care Pricing Director Name Role Phone Unavailable Primary Care Provider Unavailabl e Encounter Details Date Type Department Care Team (Late st Contact Info) Description 06/07/2023 Lab Requisition [facility] - DermPath Lab [address] [place] [phone] Gabriele Johnson MD [address] [place] [address] Social History Tobacco Use Types Packs/Day Years Used Date Smoking Tobacco: Never Assessed Sex and Gender Information Value Date Recorded Sex Assigned at Not on file Legal Sex Male 6:41 PM TECHNOLOGY SERVICES MANAGER Gender Identity Not on file Sexual Orientation Not on file documented as of this encounter Plan of Treatment Not on file documented as of this encounter Procedures Procedure Name Priority Date/Time Associated Diagnosis Comments DERMATOPATHOLOGY Routine 06/06/2023 12:0 0 AM TECHNOLOGY SERVICES MANAGER documented in this encounter Results * DERMATOPATHOLOGY (06/06/2023 12:00 AM TECHNOLOGY SERVICES MANAGER) Case Report Dermatopathology Report Case: [id number] Authorizing Provider: Gabriele Johnson MD Collected: 06/06/2023 12:00 AM Ordering Location: [facility] DermPath Lab Received: 06/07/2023 12:04 PM Pathologist: Floyd Espinoza MD Specimen: Skin, toenail 4 2:16 PM TECHNOLOGY SERVICES MANAGER DERMATOPATHOLOGY LABORATORY Final Diagnosis Specimen A. SKIN, toenail: ONYCHOMYCOSIS (B35.1) 2:16 PM TECHNOLOGY SERVICES MANAGER DERMATOPATHOLOGY LABORATORY at 1416 TECHNOLOGY SERVICES MANAGER Clinical History R/O Fungus for PAS Stain 2:16 PM [facility] DERMATOPATHOLOGY LABORATORY Gross Description Specimen A: Received is one formalin filled container labeled with the patient's name and designated toenail. The specimen consists of a nail clipping measuring 47v96d2 mm. Jar 0+. 2:16 PM [facility] DERMATOPATHOLOGY LABORATORY Microscopic Description Specimen A. SKIN, toenail: Sections show nail plate. Fungal hyphae are present on Periodic acid-Blanca (PAS) stained sections. 2:16 PM [facility] DERMATOPATHOLOGY LABORATORY Disclaimer An external and internal positive and negative controls are appropriate for the histochemical, immunohistochemical and immunofluorescence stain(s) in this case (if any), except where stated explicitly. The performance characteristics of the stain(s) cited in this report were developed and its performance characteristic determined by the Dermatopathology Laboratory at [facility], directed by Dr. Derick Espinoza. These tests need not be, and therefore are not, approved by the [place] Food and Drug Administration. The tests are used for clinical purposes. Billing Codes Specimen Charges Stain Charges 68053 1 14718 1 4 2:16 PM [facility] DERMATOPATHOLOGY LABORATORY Embedded Images 2:16 PM [facility] DERMATOPATHOLOGY LABORATORY Pathology/Cytolog y TISSUE SPECIMEN FROM SKIN / Unknown 06/06/2023 06/07/2023 12:04 PM TECHNOLOGY SERVICES MANAGER Gabriele Johnson MD LAB - PATHOLOGY/CYTOLOGY ORD ERABLES Final Result DERMATOPATHOLOGY LABORATORY [facility] - Department of Dermatology [address] [phone] documented in this encounter Visit Diagnoses Not on filedocumented in this encounter
--- OUTSIDE RECORDS SUMMARY | 2025-04-30 12:45 | XMS_ITS | Encounter Summary ---
Author Organization [facility] Address [address] [place] [address] Care Team Providers Care Computer Forensic Specialist Name Role Phone Unavailable Primary Care Provider Unavailabl e Encounter Details Date Type Department Care Team (Late st Contact Info) Description 09/24/2020 Lab Requisition [facility] DermPath Lab [address] [place] [address] Gabriele Johnson MD [address] [place] [address] Social History Tobacco Use Types Packs/Day Years Used Date Smoking Tobacco: Never Assessed Sex and Gender Information Value Date Recorded Sex Assigned at Not on file Legal Sex 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 Gender Identity Not on file Sexual Orientation Not on file documented as of this encounter Plan of Treatment Not on file documented as of this encounter Procedures Procedure Name Priority Date/Time Associated Diagnosis Comments DERMATOPATHOLOGY Routine 09/23/2020 12:0 0 AM CDT documented in this encounter Results * DERMATOPATHOLOGY (09/23/2020 12:00 AM CDT) Case Report Dermatopathology Report Case: [id number] Authorizing Provider: Gabriele Johnson MD Collected: 09/23/2020 12:00 AM Ordering Location: [facility] DermPath Lab Received: 09/24/2020 12:35 PM Pathologist: [...] characteristic determined by the Dermatopathology Laboratory at [facility], directed by Dr. Derick Espinoza. These tests need not be, and therefore are not, approved by the [place] Food and Drug Administration. The tests are used for clinical purposes. Billing Codes Specimen Charges Stain Charges 30130 1 92582 83700 1 1 1 4:04 PM CDT DERMATOPATHOLOGY LABORATORY Embedded Images 1 4:04 PM CDT DERMATOPATHOLOGY LABORATORY Pathology/Cytolog y TISSUE SPECIMEN FROM SKIN / Unknown 09/23/2020 09/24/2020 12:35 PM CDT Gabriele Johnson MD LAB - PATHOLOGY/CYTOLOGY ORD ERABLES Final Result DERMATOPATHOLOGY LABORATORY [facility] - Department of Dermatology [address] [phone] documented in this encounter Visit Diagnoses Not on filedocumented in this encounter
--- OUTSIDE RECORDS SUMMARY | 2025-04-30 12:45 | XMS_ITS | Clinical Summary ---
Author Organization [facility] Address [address] [place] [address] Care Team Providers Care Claims Supervisor Name Role Phone Unavailable Primary Care Provider Unavailabl e Source Comments [facility],non-owned Affiliates and Associated Physician Practices is amultiple site organization consisting of ambulatory clinics and hospital sitesin [place], [place], [place] and [place]. This disclosure is being madepursuant to the Care Everywhere program and may not contain all information available regarding this patient. Last updated 18.[facility] [employer] 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
--- OUTSIDE RECORDS SUMMARY | 2025-04-30 12:45 | XMS_ITS | Clinical Summary ---
Author Organization [facility] Address [address] [place] [address] Care Team Providers Care Picture Frames Inspector Name Role Phone Gabriele Johnson MD Unavailable [phone] Kiki Navas MD Unavailable [phone] Rajendra Marmolejo MD Unavailable [phone] Allergies No known active allergies Medications ibuprofen [...] EVERY MORNING ONLY TO FACE Active vit Y-C-ooqosr-zinc-lutein 226-90-0.8-5 mg capsule Take by mouth Active [...] 06/15/2022 Assessment & Plan (06/15/2022 12:48 PM STEAM PRESSER): Trial of topical steroid, will follow. Erectile dysfunction 07/09/2021 Assessment & Plan (01/11/2022 10:51 AM CDT): Clinically improved, continue current prescription medications. Assessment & Plan (07/09/2021 10:22 AM STEAM PRESSER): Improved with Cialis, cont. Refill given. Blood pressure elevated without history of HTN 0 07/09/2021 Assessment & Plan (01/11/2022 10:51 AM CDT): Re-checked manually, BP within goal of < 140/90. Low sodium diet recommended. Assessment & Plan (07/09/2021 10:22 AM STEAM PRESSER): BP within normal range. Check bps at home. BP goal < 140/90. Pure hypercholesterolemia 07/09/2021 Assessment & Plan (01/11/2022 10:50 AM CDT): LDL near goal of < 100, low chol diet recommended, will follow. Assessment & Plan (07/09/2021 10:21 AM STEAM PRESSER): LDL nearing goal of < 100. Advised patient to quit smoking. Labs ordered. Cont current Rx meds. Rosacea, acne 07/09/2021 Hx of colonic polyps 08/01/2020 Overview (08/01/2020): Added automatically from request for surgery [id number] Lumbar disc disease 06/14/2017 Alcohol induced fatty liver 06/14/2017 Cigarette nicotine dependence without complicati on 10/13/2013 Assessment & Plan (01/11/2022 10:52 AM CDT): Advised patient to quit smoking. PATIENT REFUSED LUNG CANCER SCREENING. Cites no coverage with insurance as the reason. Assessment & Plan (07/09/2021 10:22 AM STEAM PRESSER): Advised patient to quit smoking. Gastroesophageal reflux disease 10/13/2013 Overview (09/03/2016): ESOPHAGEAL REFLUX Obstructive sleep apnea syndrome 03/01/2012 Overview (09/04/2016): OBSTRUCTIVE SLEEP APNEA ILD (interstitial lung disease) Resolved Problems Problem Noted Date Diagnosed Date Resolved Date Eczema of external ear, bilateral 06/15/2022 06/15/2022 Encounter for screening colonoscopy 08/01/2020 07/09/2021 Overview (08/01/2020): Added automatically from request for surgery [id number] Hypersomnia with sleep apnea 03/01/2012 06/14/2017 Overview [...] Hx Other Medical Back Pain; Comm ents: [facility] 10/08/2014 - Hx Other Medical Eye Cancer 2014 ; Comments: [facility] 10/08/2014 - Hx Other Medical rt Knee 2011; C omments: [facility] 10/08/2014 - Hx Other Medical broken wrist [age]; Comments: [facility] 10/08/2014 - Family History Medical History Relation [...] Date Smoking Tobacco: Every Day Cigarettes 1 36.9 Started: 05/30/1988 Smokeless Tobacco: Never Tobacco Cessation:Ready [...] on file Legal Sex Male 9:39 AM STEAM PRESSER Gender Identity Not on file Sexual Orientation Not on file Last Filed Vital Signs Vital Sign Reading Time Taken Comments Blood Pressure 138/88 06/15/2022 8:19 AM STEAM PRESSER Pulse 64 06/15/2022 8:19 AM STEAM PRESSER Temperature 36.3 C (97.4 F) 06/15/2022 8:19 AM STEAM PRESSER Respiratory Rate 18 06/15/2022 8:19 AM STEAM PRESSER Oxygen Saturation 97% 06/15/2022 8:19 AM STEAM PRESSER Inhaled Oxygen Concentration - - Weight 87.3 kg (192 lb 8 oz) 06/15/2022 8:19 AM STEAM PRESSER Height 187.8 cm (6' 1.94) 06/15/2022 8:19 AM CS T Body Mass Index 24.76 06/15/2022 8:19 AM STEAM PRESSER Plan of Treatment Health Maintenance Due Date [...] CDT PSA SCREEN Routine 07/01/2020 7:[address] LUNG CANCER SCREENING Schedule Routine, Read Routine (OP Routine) 08/08/2017 6:50 AM CDT Encounter for screening for respiratory disorder Cigarette smoker SERUM HEPATITIS C AB Routine 06/04/2016 4:40 AM STEAM PRESSER from Last 3 Months or Most Recently Relevant to Health Maintenance Results * COLONOSCOPY (09/05/2020 9:08 AM CDT) Anatomical Region Laterality Modality Other Narrative Procedure Note Dru Martinez MD - 09/05/2020 9:08 AM CDT [facility] Patient Name: Larry Gallo Procedure Date: 09/05/2020 9:08 AM Date of : 1960 Admit Type: Outpatient Age: 59 Gender: Male Attending MD: Dru Martinez M.D. Room: [facility] ENDOSCOPY ROOM 2 Note Status: Finalized Patient [...] scope was passed under direct vision. TheColonoscope [id number] was introduced through the anus and advanced [...] malignant neoplasm of colon CPT copyright 2019 [employer]. All rights reserved. The codes documented in this report are preliminary and upon hand fur cleaner reviewmay be revised to meet current compliance requirements. Recognized by the [employer] for promoting quality in endoscopy us Dru Martinez MD ENDOSCOPY PROCEDURES Final Re sult * PSA screen (07/01/2020 7:08 AM STEAM PRESSER) PSA 0.5 < OR = 4.0 ng/mL [...] or absence of disease. 07/01/2020 7:08 AM STEAM PRESSER 07/01/2020 7:12 AM STEAM PRESSER Narrative [facility] - 07/02/2020 3:08 AM STEAM PRESSER FASTING:YES FASTING: YES us Manuel Ortiz MD LAB BLOOD ORDERABLES Final Res ult [facility] [address] [place] [address] * CT Lung Cancer Screening (08/08/2017 6:50 [...] pancreas, adrenals appear unremarkable Procedure Note Elijah Nyaak MD - 08/08/2017 RESULT: HISTORY: Lung nodules., [...] Serum Hepatitis C ab (06/04/2016 4:40 AM STEAM PRESSER) HCV ab NON-REACTI VE NON-REACTI VE CDR HISTORICAL RESULTS Hepatitis signal to cutoff ratio 0.06 <1.00 CDR HISTORICAL RESULTS Serum 06/04/2016 4:40 AM STEAM PRESSER Narrative CDR HISTORICAL RESULTS - 06/05/2016 6:00 AM STEAM PRESSER Test performed [email or web address] [address] [place] [phone] Director: RAMIRO PICKETT DO,MPH Historical Provider LAB BLOOD ORDERABLES Maria Alejandra l Result CDR HISTORICAL RESULTS from Last 3 Months or Most Recently Relevant to Health Maintenance Insurance [facility] H[facility]/PPO Address: [address] [address] [place] [address] [facility] PPO AETNA [facility] H[facility]/PPO Address: [facility] [address] [place] [address] Advance Directives For more information, please contact: [phone] * Full Code (Latest Code Status on File) Date Activated Date Inactivated Comments 09/05/2020 9:10 AM 09/05/2020 3:20 PM * Full Code Date Activated Date Inactivated Comments 09/05/2020 9:10 AM 09/05/2020 9:10 AM Care Teams Picture Frames Inspector Relationship Specialty Start Date End Date Gabriele Johnson MD [address] [place] [address] Referring Physician Dermatology 07/09/21 Kiki Navas MD [address] [facility] [place] [address] Referring Physician Pulmonary Disease 07/09/21 Rajendra Marmolejo MD [address] [facility] [place] [address] Referring Physician Emergency Medicine 06/15/22
[2025-04-30 18:51] LABS: Hematocrit 40.2 % (42.0-52.0); Hemoglobin 13.4 g/dL (14.0-18.0); Immature Granulocyte Percent A 0.0 % (0-0.5); Lymphocytes Absolute Auto 2.07 K/mm3 (0.9-3.2); Mean Corpuscular HGB Conc 33.3 g/dl (32-36); Mean Corpuscular Hemoglobin 30.8 pg (26-34); Mean Corpuscular Volume 92.4 fl (80-100); Nucleated Red Blood Cells Absolute Auto 0.000 K/mm3 (0.0-0.012); Nucleated Red Blood Cells Perc 0.0 % (0.0-0.2); Platelet Count Result 178 k/mm3 (150-375); Red Blood Count 4.35 M/mm3 (4.6-6.20); White Blood Count 5.5 K/mm3 (4.5-10.0)
[2025-04-30 19:06] LABS: INR 1.2; Prothrombin Time 15.0 Seconds (11.1-14.7)
[2025-04-30 19:31] LABS: Alanine Aminotransferase 25 U/L (6-50); Albumin Level 4.2 g/dL (3.5-5.1); Alkaline Phosphatase 52 U/L (38-126); Anion Gap 4 mmol/L (4-12); Aspartate Amino Transferase 46 U/L (17-59); Bilirubin,Total 0.4 mg/dL (0.2-1.3); Blood Urea Nitrogen 9 mg/dL (9-20); Calcium 9.0 mg/dL (8.4-10.2); Carbon Dioxide 28 mmol/L (22-30); Chloride 106 mmol/L (98-107); Estimated Glomerular Filt Rate > 60; Glucose 85 mg/dL (65-110); Potassium 4.2 mmol/L (3.4-5.0); Sodium 138 mmol/L (137-145); Total Protein 7.4 g/dL (6.3-8.2)
[2025-04-30 19:45] LABS: Iron 105 ug/dL (49-181)
[2025-04-30 19:56] LABS: Percent Iron Saturation 30 % (20-50)
[2025-04-30 20:18] LABS: Hepatitis B Surface Antigen Negative (Negative)
[2025-04-30 20:23] LABS: HAV RESULT Negative (Negative); Hepatitis B Core IgM Result Negative (Negative)
[2025-04-30 20:26] LABS: Ferritin 169.00 ng/mL (11.1-264)
[2025-05-01 16:08] LABS: ANA by IFA Rfx Titer/Pattern Positive (.)
== END 2025-04-30 11:45 | disposition home or self-care (01) ==
LOC: ANHBWCLAB 11:45
PROVIDERS: PCP Family Medicine; Visit Provider Nurse Practitioner Family
DX: R74.8 Abnormal levels of other serum enzymes (principal); K74.60 Unspecified cirrhosis of liver; R79.0 Abnormal level of blood mineral; R74.01 Elevation of levels of liver transaminase levels; R79.89 Other specified abnormal findings of blood chemistry
CPT/HCPCS: 36415; 80053; 80074; 82103; 82105; 82390; 82728; 83540; 83550; 85025; 85610; 86015; 86038; 86376; 86381

== ENCOUNTER 2025-05-14 15:06 | Outpatient (CLI) | payer MEDICARE, SELFPAY ==
--- OUTSIDE RECORDS SUMMARY | 2025-05-14 17:30 | XMS_ITS | Clinical Summary ---
Author Organization [facility] Address [address] [place] [address] Phone Care Team Providers Care Facility Environmental Technician Name Role Phone Rober Cabral MD Primary Care Provider [phone] Allergies No known active allergies Medications No [...] Comments Blood Pressure 137/78 06/03/2023 2:00 PM ASSEMBLY DETAILER Pulse 78 06/03/2023 2:00 PM ASSEMBLY DETAILER Temperature 36.1 C (96.9 F) 06/03/2023 9:44 AM ASSEMBLY DETAILER Respiratory Rate 18 06/03/2023 2:00 PM ASSEMBLY DETAILER Oxygen Saturation 100% 06/03/2023 2:00 PM ASSEMBLY DETAILER Inhaled Oxygen Concentration - - Weight 86.5 kg (190 lb 11.2 oz) 06/03/2023 9:44 AM ASSEMBLY DETAILER Height 188 cm (6' 2) 06/03/2023 9:44 AM ASSEMBLY DETAILER Body Mass Index 24.48 06/03/2023 9:44 AM ASSEMBLY DETAILER Plan of Treatment Health Maintenance Due Date [...] 02/27/2021, 02/28/2020, Additional history exists SARS-COV-2 Immunization ( - 2024- season) 2025 03/31/2021, 08/15/2020, 07/24/2020 Respiratory Syncytial Virus (RSV) Immunization (Adult) (1 - 1-dose 75+ series) 2033 Zoster Immunization Completed 06/06/2018, 03/24/2018, 04/09/2015 DTaP/Tdap/Td Immunization Discontinued 2018, 03/28/2012, 01/28/2002 TdaP Immunization Completed 04/15/2019, , 01/28/2002 Human Papillomavirus (HPV) Immunization (No Doses Required) Completed Meningococcal Immunization (ACWY) Aged Out No longer eligible based on patient's age to complete this topic Rotavirus Immunization Aged Out No lo nger eligible based on patient's age to complete this topic Insurance Care Teams Facility Environmental Technician Relationship Specialty Start Date End Date Rober Cabral MD PCP - General Family Medicine 06/03/23
--- OUTSIDE RECORDS SUMMARY | 2025-05-14 17:30 | XMS_ITS | Clinical Summary ---
Author Organization [facility] Address [address] [place] [address] Care Team Providers Care Proposal Lead Writer Name Role Phone Unavailable Primary Care Provider Unavailabl e Source Comments [facility],non-owned Affiliates and Associated Physician Practices is amultiple site organization consisting of ambulatory clinics and hospital sitesin [place], [place], [place] and [place]. This disclosure is being madepursuant to the Care Everywhere program and may not contain all information available regarding this patient. Last updated 18.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
--- OUTSIDE RECORDS SUMMARY | 2025-05-14 17:30 | XMS_ITS | Encounter Summary ---
Author Organization [facility] Address [address] [place] [address] Care Team Providers Care Nursing Program Director Name Role Phone Unavailable Primary Care Provider Unavailabl e Encounter Details Date Type Department Care Team (Late st Contact Info) Description 09/24/2020 Lab Requisition [facility] DermPath Lab [address] [place] [address] Gabriele Johnson MD [address] [place] [address] Social History Tobacco Use Types Packs/Day Years Used Date Smoking Tobacco: Never Assessed Sex and Gender Information Value Date Recorded Sex Assigned at Not on file 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 Gender Identity Not on file Sexual Orientation Not on file documented as of this encounter Plan of Treatment Not on file documented as of this encounter Procedures Procedure Name Priority Date/Time Associated Diagnosis Comments DERMATOPATHOLOGY Routine 09/23/2020 12:0 0 AM CDT documented in this encounter Results * DERMATOPATHOLOGY (09/23/2020 12:00 AM CDT) Case Report Dermatopathology Report Case: [id number] Authorizing Provider: Gabriele Johnson MD Collected: 09/23/2020 12:00 AM Ordering Location: [facility] Derm[facility] Lab Received: 09/24/2020 12:35 PM Pathologist: [...] characteristic determined by the Dermatopathology Laboratory at [facility], directed by Dr. Derick sEpinoza. These tests need not be, and therefore are not, approved by the [place] Food and Drug Administration. The tests are used for clinical purposes. Billing Codes Specimen Charges Stain Charges 56377 1 05780 68861 1 1 1 4:04 PM CDT DERMATOPATHOLOGY LABORATORY Embedded Images 1 4:04 PM CDT DERMATOPATHOLOGY LABORATORY Pathology/Cytolog y TISSUE SPECIMEN FROM SKIN / Unknown 09/23/2020 09/24/2020 12:35 PM CDT Gabriele Johnson MD LAB - PATHOLOGY/CYTOLOGY ORD ERABLES Final Result DERMATOPATHOLOGY LABORATORY [facility] - Department of Dermatology [address], [address] [phone] documented in this encounter Visit Diagnoses Not on filedocumented in this encounter
--- OUTSIDE RECORDS SUMMARY | 2025-05-14 17:30 | XMS_ITS | Encounter Summary ---
Author Organization [facility] Address [address] [place] [address] Care Team Providers Care Grape Crusher Name Role Phone Unavailable Primary Care Provider Unavailabl e Encounter Details Date Type Department Care Team (Late st Contact Info) Description 06/07/2023 Lab Requisition [facility] - DermPath Lab [address] [place] [phone] Gabriele Johnson MD [address] [place] [address] Social History Tobacco Use Types Packs/Day Years Used Date Smoking Tobacco: Never Assessed Sex and Gender Information Value Date Recorded Sex Assigned at Not on file Legal Sex Male 6:41 PM MIXER PIGMENT Gender Identity Not on file Sexual Orientation Not on file documented as of this encounter Plan of Treatment Not on file documented as of this encounter Procedures Procedure Name Priority Date/Time Associated Diagnosis Comments DERMATOPATHOLOGY Routine 06/06/2023 12:0 0 AM MIXER PIGMENT documented in this encounter Results * DERMATOPATHOLOGY (06/06/2023 12:00 AM MIXER PIGMENT) Case Report Dermatopathology Report Case: [id number] Authorizing Provider: Gabriele Johnson MD Collected: 06/06/2023 12:00 AM Ordering Location: [facility] DermPath Lab Received: 06/07/2023 12:04 PM Pathologist: Floyd Espinoza MD Specimen: Skin, toenail 2:16 PM MIXER PIGMENT DERMATOPATHOLOGY LABORATORY Final Diagnosis Specimen A. SKIN, toenail: ONYCHOMYCOSIS (B35.1) 2:16 PM MIXER PIGMENT DERMATOPATHOLOGY LABORATORY at [address] MIXER PIGMENT Clinical History R/O Fungus for PAS Stain 2:16 PM [facility] DERMATOPATHOLOGY LABORATORY Gross Description Specimen A: Received is one formalin filled container labeled with the patient's name and designated toenail. The specimen consists of a nail clipping measuring 65u16d7 mm. Jar 0+. 2:16 PM [facility] DERMATOPATHOLOGY LABORATORY Microscopic Description Specimen A. SKIN, toenail: Sections show nail plate. Fungal hyphae are present on Periodic acid-Blanca (PAS) stained sections. 2:16 PM [facility] DERMATOPATHOLOGY LABORATORY Disclaimer An external and internal positive and negative controls are appropriate for the histochemical, immunohistochemical and immunofluorescence stain(s) in this case (if any), except where stated explicitly. The performance characteristics of the stain(s) cited in this report were developed and its performance characteristic determined by the Dermatopathology Laboratory at [facility], directed by Dr. Derick Espinoza. These tests need not be, and therefore are not, approved by the [place] Food and Drug Administration. The tests are used for clinical purposes. Billing Codes Specimen Charges Stain Charges 13705 1 31328 1 4 2:16 PM [facility] DERMATOPATHOLOGY LABORATORY Embedded Images 2:16 PM [facility] DERMATOPATHOLOGY LABORATORY Pathology/Cytolog y TISSUE SPECIMEN FROM SKIN / Unknown 06/06/2023 06/07/2023 12:04 PM MIXER PIGMENT Gabriele Johnson MD LAB - PATHOLOGY/CYTOLOGY ORD ERABLES Final Result DERMATOPATHOLOGY LABORATORY [facility] - Department of Dermatology [address] [phone] documented in this encounter Visit Diagnoses Not on filedocumented in this encounter
--- OUTSIDE RECORDS SUMMARY | 2025-05-14 17:30 | XMS_ITS | Patient Health Record ---
Author Organization [facility] Address [address] [place] [address] E[place] Bustos [address] Phone [phone] Care Team Providers Care Operational Risk Analyst Name Role Phone KEARA JOVEL MD Primary Care Provider Unavailabl e Reason For Referral No Information Medications Medication SIG (Take, Route, Frequency, Duration) Notes Start Date End Date Diagnosis (ICD Code) Status Cialis Active Ibuprofen Active traMADol HCl 50 MG Tablet 1 tablet as needed Orally HS prn for severe pain; Duration: 30 days 07/25/2017 Radiculopathy, lumbosacral region (ICD_10 - M54.17) Active Social History Sex Observation Social History Observation Description Sex Observation Male Problems Problem Type SNOMED Code ICD Code Dates Problem Status W/U Status Risk Notes Problem Acquired spondylolisthesis (520386121) Spondylolisthe sis, lumbosacral region (M43.17) Added On:08/28 Active confirmed L5 on S1 Problem Spinal enthesopathy (40443403) Spinal enthesopathy, site unspecified (M46.00) Added On:08/28 Active confirmed Lumbar paraspinous muscle spasm and myofascial pain. Problem Lumbosacral spondylosis without myelopathy (disorder) (36434868) Spondylosis without myelopathy or radiculopathy, lumbosacral region (M47.817) Added On:07/01 Active confirmed Problem Spinal stenosis of lumbar region (65884419) Spinal stenosis, lumbosacral region (M48.07) Added On:07/01 Active confirmed Problem Lumbosacral radiculopathy (6693435) Radiculopathy, lumbosacral region (M54.17) Added On:07/01 Active confirmed Problem Enthesopathy of hip region (10887645) Trochanteric bursitis, unspecified hip (M70.60) Added On:08/28 Active confirmed Bilateral Problem Spinal stenosis of lumbar region (94940420) Spinal stenosis, lumbar region without neurogenic claudication (M48.061) Added On:08/28 Active confirmed L5-S1 central canal and bilateral neural foraminal stenosis. Plan Of Treatment No Information Insurance Providers Payer Name Payer Address Payer Phone Subscriber Number Group Number Insured Name Patient Relationship to Insured Coverage Start Date Coverage End Date zAETNA MEDICARE [address] [place] [address] [id number] RUDDY NICHOLS Self - patient is the insured 8 Medical (General) History Medical History History ICD Code Obstructive sleep apnea Cirrhosis Surgical History Surgery Date(Month/Year) Right knee arthroscopy 2011
--- OUTSIDE RECORDS SUMMARY | 2025-05-14 17:30 | XMS_ITS | Clinical Summary ---
Author Organization [facility] Address [address] [place] [address] Care Team Providers Care Special Education Bus Driver Name Role Phone Gabriele Johnson MD Unavailable [phone] Kiki Navas MD Unavailable [phone] Rajendra Marmolejo MD Unavailable [phone] Allergies No known active allergies Medications ibuprofen [...] EVERY MORNING ONLY TO FACE Active vit G-V-veakcx-zinc-lutein 226-90-0.8-5 mg capsule Take by mouth Active [...] 06/15/2022 Assessment & Plan (06/15/2022 12:48 PM TRAINING PROGRAM MANAGER): Trial of topical steroid, will follow. Erectile dysfunction 07/09/2021 Assessment & Plan (01/11/2022 10:51 AM CDT): Clinically improved, continue current prescription medications. Assessment & Plan (07/09/2021 10:22 AM TRAINING PROGRAM MANAGER): Improved with Cialis, cont. Refill given. Blood pressure elevated without history of HTN 0 07/09/2021 Assessment & Plan (01/11/2022 10:51 AM CDT): Re-checked manually, BP within goal of < 140/90. Low sodium diet recommended. Assessment & Plan (07/09/2021 10:22 AM TRAINING PROGRAM MANAGER): BP within normal range. Check bps at home. BP goal < 140/90. Pure hypercholesterolemia 07/09/2021 Assessment & Plan (01/11/2022 10:50 AM CDT): LDL near goal of < 100, low chol diet recommended, will follow. Assessment & Plan (07/09/2021 10:21 AM TRAINING PROGRAM MANAGER): LDL nearing goal of < 100. Advised patient to quit smoking. Labs ordered. Cont current Rx meds. Rosacea, acne 07/09/2021 Hx of colonic polyps 08/01/2020 Overview (08/01/2020): Added automatically from request for surgery [id number] Lumbar disc disease 06/14/2017 Alcohol induced fatty liver 06/14/2017 Cigarette nicotine dependence without complicati on 10/13/2013 Assessment & Plan (01/11/2022 10:52 AM CDT): Advised patient to quit smoking. PATIENT REFUSED LUNG CANCER SCREENING. Cites no coverage with insurance as the reason. Assessment & Plan (07/09/2021 10:22 AM TRAINING PROGRAM MANAGER): Advised patient to quit smoking. Gastroesophageal reflux disease 10/13/2013 Overview (09/03/2016): ESOPHAGEAL REFLUX Obstructive sleep apnea syndrome 03/01/2012 Overview (09/04/2016): OBSTRUCTIVE SLEEP APNEA ILD (interstitial lung disease) Resolved Problems Problem Noted Date Diagnosed Date Resolved Date Eczema of external ear, bilateral 06/15/2022 06/15/2022 Encounter for screening colonoscopy 08/01/2020 07/09/2021 Overview (08/01/2020): Added automatically from request for surgery [id number] Hypersomnia with sleep apnea 03/01/2012 06/14/2017 Overview [...] Hx Other Medical Back Pain; Comm ents: [facility] 10/08/2014 - Hx Other Medical Eye Cancer 2014 ; Comments: [facility] 10/08/2014 - Hx Other Medical rt Knee 2011; C omments: [facility] 10/08/2014 - Hx Other Medical broken wrist [age]; Comments: [facility] 10/08/2014 - Family History Medical History [...] Date Smoking Tobacco: Every Day Cigarettes 1 37 Started: 05/30/1988 Smokeless Tobacco: Never Tobacco Cessation:Ready [...] on file Legal Sex Male 9:39 AM TRAINING PROGRAM MANAGER Gender Identity Not on file Sexual Orientation Not on file Last Filed Vital Signs Vital Sign Reading Time Taken Comments Blood Pressure 138/88 06/15/2022 8:19 AM TRAINING PROGRAM MANAGER Pulse 64 06/15/2022 8:19 AM TRAINING PROGRAM MANAGER Temperature 36.3 C (97.4 F) 06/15/2022 8:19 AM TRAINING PROGRAM MANAGER Respiratory Rate 18 06/15/2022 8:19 AM TRAINING PROGRAM MANAGER Oxygen Saturation 97% 06/15/2022 8:19 AM TRAINING PROGRAM MANAGER Inhaled Oxygen Concentration - - Weight 87.3 kg (192 lb 8 oz) 06/15/2022 8:19 AM TRAINING PROGRAM MANAGER Height 187.8 cm (6' 1.94) 06/15/2022 8:19 AM CS T Body Mass Index 24.76 06/15/2022 8:19 AM TRAINING PROGRAM MANAGER Plan of Treatment Health Maintenance Due [...] Screen 12/07/2023 Well Visit 65+ 12/07/2023 01/11/2022, 06/2020, 06/29/2019, Additional history exists Covid-19 Vaccine (2024-2 6 season) 2025 03/31/2021, 08/15/2020, 07/24/2020 Influenza [...] CDT PSA SCREEN Routine 07/01/2020 7:[address] LUNG CANCER SCREENING Schedule Routine, Read Routine (OP Routine) 08/08/2017 6:50 AM CDT Encounter for screening for respiratory disorder Cigarette smoker SERUM HEPATITIS C AB Routine 06/04/2016 4:40 AM TRAINING PROGRAM MANAGER from Last 3 Months or Most [...] Male Attending MD: Dru Martinez M.D. Room: [facility] ENDOSCOPY ROOM 2 Note Status: Finalized [...] scope was passed under direct vision. TheColonoscope [id number] was introduced through the anus and advanced [...] malignant neoplasm of colon CPT copyright 2019 [employer]. All rights reserved. The codes documented in this report are preliminary and upon technician anatomic pathology reviewmay be revised to meet current compliance requirements. Recognized by the [employer] for promoting quality in endoscopy us Dru Martinez MD ENDOSCOPY PROCEDURES Final Re sult * PSA screen (07/01/2020 7:08 AM TRAINING PROGRAM MANAGER) PSA 0.5 < OR = 4.0 [...] or absence of disease. 07/01/2020 7:08 AM TRAINING PROGRAM MANAGER 07/01/2020 7:12 AM TRAINING PROGRAM MANAGER Narrative [facility] - 07/02/2020 3:08 AM TRAINING PROGRAM MANAGER FASTING:YES FASTING: YES us Manuel Ortiz MD LAB BLOOD ORDERABLES Final Res ult [facility] [id number] [place] [address] * CT Lung Cancer Screening (08/08/2017 6:50 [...] Serum Hepatitis C ab (06/04/2016 4:40 AM TRAINING PROGRAM MANAGER) HCV ab NON-REACTI VE NON-REACTI VE CDR HISTORICAL RESULTS Hepatitis signal to cutoff ratio 0.06 <1.00 CDR HISTORICAL RESULTS Serum 06/04/2016 4:40 AM TRAINING PROGRAM MANAGER Narrative CDR HISTORICAL RESULTS - 06/05/2016 6:00 AM TRAINING PROGRAM MANAGER Test performed at [facility] [address] [place] [address] Director: RAMIRO PICKETT DO,MPH Historical Provider LAB BLOOD ORDERABLES Maria Alejandra natasha Result CDR HISTORICAL RESULTS from Last 3 Months or Most Recently Relevant to Health Maintenance Insurance [facility] CHOICE PLUS [facility] PPO [employer] SELECT [facility] CHOICE PLUS Advance Directives For more information, please contact: [phone] * Full Code (Latest Code Status on File) Date Activated Date Inactivated Comments 09/05/2020 9:10 AM 09/05/2020 3:20 PM * Full Code Date Activated Date Inactivated Comments 09/05/2020 9:10 AM 09/05/2020 9:10 AM Care Teams Special Education Bus Driver Relationship Specialty Start Date End Date Gabriele Johnson MD [address] [address] Referring Physician Dermatology 07/09/21 Kiki Navas [place] [address] [place] [address] Referring Physician Pulmonary Disease 07/09/21 Rajendra Marmolejo [place] [address] [place] [address] Referring Physician Emergency Medicine 06/15/22
== END 2025-05-14 15:07 | disposition home or self-care (01) ==
PROVIDERS: PCP Family Medicine; Visit Provider Nurse Practitioner Family
DX: E88.01 Alpha-1-antitrypsin deficiency (principal)
CPT/HCPCS: 82103; 82104